=== PATIENT | female | born 1980 | race Caucasian/White ===

== ENCOUNTER 2016-08-30 11:20 | Outpatient (RCR) | payer OTHER ==
--- OUTSIDE RECORDS SUMMARY | 2016-07-05 09:10 | XMS REPORT | Continuity of Care Document ---
Author Author [facility] Organization [facility] Address Unknown Phone Unavailable Care Team Providers Care Undercover Agent Name Role Phone Carol Morillo PCP [phone] Source Comments Some departments are not documenting in the electronic medical record. If you do not see the information that you expected, contact Release of Information in the Health Information Management department at [phone] for further assistance in locating additional records.[facility] Active Allergies and Adverse Reactions No Known Allergies Current Medications Prescription Sig. Disp. Refills Start End Date Status Date pantoprazole DR Take 40 mg by mouth Active (PROTONIX) 40 mg tablet daily. zolpidem (AMBIEN) 10 mg Take 10 mg by mouth at Active tablet bedtime as needed for Sleep. medroxyPROGESTERone Inject 150 mg to area(s) Active (DEPO-PROVERA) 150 mg/mL as directed every 90 injection days. ALPRAZolam (XANAX) 1 mg Take 1 mg by mouth every Active tablet 6 hours as needed for Anxiety. diphenhydrAMINE Take 25-50 mg by mouth Active (BENADRYL) 25 mg capsule every 6 hours as needed. folic acid (FOLVITE) 1 mg Take 1 Tab by mouth 90 Tab 3 02/05/20 Active tablet daily. 16 senna/docusate Take 1-2 Tabs by mouth 0 02/05/20 Active (SENOKOT-S) 8.6/50 mg twice daily as needed 16 tablet (constipation). cyanocobalamin(+) Take 2,500 mcg by mouth Active (VITAMIN B-12) 500 mcg daily. tablet ferrous sulfate (FEOSOL, Take 325 mg by mouth Active FEROSUL) 325 mg (65 mg daily. Take on an empty iron) tablet stomach at least 1 hour before or 2 hours after food. cholecalciferol (vitamin Take 1 Tab by mouth every Active D3) 50,000 unit tab 7 days. On Sunday docusate (COLACE) 100 mg Take 100-200 mg by mouth Active capsule daily as needed for Constipation. calcium carbonate-vitamin Take 1 Tab by mouth Active D3 600 mg(1,500mg) -800 daily. unit tab multivit with min-folic Chew 1 Gummy by mouth Active acid 200 mcg chewable daily. Biotin 1 mg tab Take 1 Tab by mouth Active daily. thiamine (VITAMIN B-1) Take 1 Tab by mouth 90 Tab 3 06/28/20 Active 100 mg tablet daily. This medication 16 may be purchased from over the counter from your preferred pharmacy ondansetron (ZOFRAN ODT) Take 4 mg by mouth every 06/22/20 Discontin 4 mg rapid dissolve 4 hours as needed for 16 ued tablet Nausea. granisetron(+) (KYTRIL) 1 Take 1 mg by mouth every 06/22/20 Discontin mg tablet 12 hours as needed for 16 ued Nausea. scopolamine Apply 1 Patch to top of 06/22/20 Discontin (TRANSDERM-SCOP) 1.5 mg skin as directed every 72 16 ued patch hours. ergocalciferol (VITAMIN Take 1 Cap by mouth every 4 Cap 1 02/05/20 06/22/20 Discontin D-2) 50,000 unit capsule 7 days. 16 16 ued polyethylene glycol 3350 Take 1 Packet by mouth 12 Each 02/05/20 Discontin (MIRALAX) 17 g packet twice daily as needed 16 16 ued (constipation). bisacodyl (DULCOLAX Insert or Apply 1 0 02/05/20 06/22/20 Discontin (BISACODYL)) 10 mg rectal Suppository to rectal 16 16 ued suppository area as directed as Needed (constipation). fentaNYL (DURAGESIC) 50 Apply 1 Patch to top of 06/22/20 Discontin mcg/hr patch skin as directed every 72 16 ued hours Active Problems Problem Noted Date Neuropathy (HCC) 06/28/2016 Postdural puncture headache 06/27/2016 Gait instability 06/22/2016 Lower extremity numbness 06/22/2016 Gastric hourglass stricture or stenosis 01/31/2016 Obesity (BMI 30-39.9) 01/31/2016 Gastric band slippage 01/30/2016 S/P gastric surgery 01/30/2016 Status post bariatric surgery 01/30/2016 Nausea and vomiting 01/30/2016 Most Recent Encounters Date Type Specialty Providers Description 06/30/2016 Telephone Neurology Reagan Wilkerson MD Appointment - reminder 07.06.16 06/28/2016 [facility] Radiology Brian Ortiz MD Canceled (Scheduled from Encounter Edmund Doan MD Wait List) 06/27/2016 Procedure visit Anesthesia Pain Regan Stanton MD Postdural puncture headache (Primary Dx) 06/23/2016 Screening Form 06/22/2016 [facility] Radiology Devorah Douglas, Encounter 06/22/2016 [facility] Devorah Douglas, Encounter Zane Tellez RN Torline, Mayur Browning MD 06/22/2016 [facility] Den Rodas DO Gait instability - Encounter Devorah Douglas, 06/28/2016 Brian Wong MD Nashatizadeh, Muhammad M, MD 06/22/2016 Screening Form 06/21/2016 Telephone Neurology Reagan Wilkerson MD Worsening Symptoms 06/09/2016 Telephone Neurology Mando Wilkinson MD Appointment Request Social History Tobacco Use Types Packs/Day Years Used Date Never Smoker Alcohol Use Drinks/Week oz/Week Comments No 0 Standard 0.0 drinks or equivalent Last Filed Vital Signs Vital Sign Reading Time Taken Blood Pressure 127/74 06/28/2016 4:46 AM [employer] Pulse 43 06/28/2016 4:46 AM [employer] Temperature 36.5 C (97.7 F) 06/28/2016 4:46 AM [employer] Respiratory Rate - - Height 1.727 m (5' 8") 06/27/2016 12:36 PM [employer] Weight 89.631 kg (197 lb 9.6 oz) 06/28/2016 5:59 AM [employer] Body Mass Index 30.05 06/28/2016 5:59 AM [employer] Oxygen Saturation 94% 06/28/2016 4:46 AM [employer] Plan of Care Date Type Specialty Providers Description 07/06/2016 Appointment Neurology Reagan Wilkerson MD [address] [place] [address] [phone] (Fax) 07/06/2016 Appointment Neurology Reagan Wilkerson MD [address] [place] [address] [phone] (Fax) Health Maintenance Due Date Last Done Comments Physical (Comprehensive) 1986 Exam Pertussis Vaccine 1990 Tetanus Vaccine 1996 Cervical Cancer Screening 2000 Influenza Vaccine 03/09/2016 Procedures from Last 3 Months Procedure Name Priority Date/Time Associated Diagnosis Comments TELEMETRY STRIPS-SCAN 07/01/2016 Results for this 7:35 AM [employer] procedure are in the results section. CONSULT IV THERAPY TEAM Routine 06/25/2016 3:57 PM [employer] Results from Last 3 Months TELEMETRY STRIPS-SCAN (07/01/2016 7:35 AM) Narrative Ordered by an unspecified provider. CREATINE KINASE-CPK (06/28/2016 3:15 PM) Component Value Range Creatine Kinase 23 21-215 U/L Specimen Blood IMMUNOFIXATION, SERUM (IFES) (06/28/2016 3:15 PM) Component Value Range Immuno Fix-Serum NO PARAPROTEIN SEEN Pathologist Signature INTERPRETED BY ALBERTO HAGEN By the PATH SIGNATURE ABOVE, I attest that I have personally formulated the final interpretation expressed in this report and that the above diagnosis is based upon my examination of the slides and/or other material indicated in this report. Specimen Blood TOTAL PROTEIN SEP (06/28/2016 3:15 PM) Component Value Range Total Protein 5.9 (L) 6.0-8.0 g/dL Specimen Blood ELECTROPHORESIS-SERUM PROTEIN (06/28/2016 3:15 PM) Component Value Range Total Protein-SEP 5.9 (L) 6.0-8.0 G/DL Albumin % 60.2 48-68 % Alpha 1 % 4.3 2-6 % Alpha 2 % 14.6 5-15 % Beta %,Serum 9.2 9-17 % Gamma % 11.7 9-21 % Interpretation - SEP NORMAL ELECTROPHORETIC PATTERN Pathologist Signature INTERPRETED BY ALBERTO HAGEN By the PATH SIGNATURE ABOVE, I attest that I have personally formulated the final interpretation expressed in this report and that the above diagnosis is based upon my examination of the slides and/or other material indicated in this report. Specimen Blood ANTI-SCL 70 ANTIBODY (06/28/2016 3:15 PM) Component Value Range SCL70 Ab <0.2 Reference range: <1.0 (Negative) Unit: U [facility] Specimen Blood ANTI-CENTROMERE ANTIBODY (06/28/2016 3:15 PM) Component Value Range Centromere Antibody <0.2 Reference range: <1.0 (Negative) Unit: U [facility] Specimen Blood C REACTIVE PROTEIN (CRP) (06/28/2016 3:15 PM) Component Value Range C-Reactive Protein 0.06 <1.0 MG/DL Specimen Blood C4 COMPLEMENT 4 (06/28/2016 3:15 PM) Component Value Range Complemnt C4 21.0 10-49 MG/DL Specimen Blood C3 COMPLEMENT 3 (06/28/2016 3:15 PM) Component Value Range Complemnt C3 105.0 88-200 MG/DL Specimen Blood ANTI-DNA DOUBLE STRAND (06/28/2016 3:15 PM) Component Value Range DNA Double Strand AB <10 <10 TITER Specimen Blood BASIC METABOLIC PANEL (06/28/2016 4:45 AM)Only the most recent of 2 results within the time period is included. Component Value Range Sodium 136 (L) 137-147 MMOL/L Potassium 3.6 3.5-5.1 MMOL/L Chloride 106 98-110 MMOL/L CO2 24 21-30 MMOL/L Anion Gap 6 3-12 Glucose 130 (H) 70-100 MG/DL Blood Urea Nitrogen 15 7-25 MG/DL Creatinine 0.59 0.4-1.00 MG/DL Calcium 8.9 8.5-10.6 MG/DL eGFR Non >60Comment: >60 mL/min The eGFR is not validated for use in drug dosing adjustments. Continue to use estimated creatinine clearance per dosing reference text. Please contact the Clinical Pharmacist for questions. eGFR >60Comment: >60 mL/min The eGFR is not validated for use in drug dosing adjustments. Continue to use estimated creatinine clearance per dosing reference text. Please contact the Clinical Pharmacist for questions. Specimen Blood CBC (06/28/2016 4:45 AM)Only the most recent of 2 results within the time period is included. Component Value Range White Blood Cells 8.7 4.5-11.0 K/UL RBC 4.08 4.0-5.0 M/UL Hemoglobin 11.9 (L) 12.0-15.0 GM/DL Hematocrit 35.9 (L) 36-45 % MCV 88.2 80-100 FL MCH 29.2 26-34 PG MCHC 33.1 32.0-36.0 G/DL RDW 14.4 11-15 % Platelet Count 218 150-400 K/UL MPV 10.1 7-11 FL Specimen Blood FLUORO GUIDANCE FOR SPINE INJ RAD (06/27/2016 1:30 PM) Narrative This order has been auto finalized and does not contain a result. ANTI-NUCLEAR AB(SOLIS)-QUANT (06/26/2016 8:40 AM) Component Value Range SOLIS Titer/Pattern 640 (H)Comment: <80 HOMOGENEOUS SPECKLED FOLATE, SERUM (06/26/2016 8:40 AM) Component Value Range Serum Folate >24.0Comment: NOTE NEW REFERENCE RANGES >3.9 NG/ML Specimen Blood RHEUMATOID FACTOR (RF) (06/26/2016 8:40 AM) Component Value Range Rheum Factor Screen <20 <24 IU/mL Specimen Blood ANTI-NUCLEAR ANTIBODY(SOLIS) (06/26/2016 8:40 AM) Component Value Range SOLIS Screen SEE TITER <80 TITER Specimen Blood SED RATE (06/26/2016 8:40 AM) Component Value Range Sed Rate -ESR 10 0-20 MM/HR Specimen Blood PHOSPHORUS (06/26/2016 4:49 AM)Only the most recent of 3 results within the time period is included. Component Value Range Phosphorus 3.4 2.0-4.0 MG/DL Specimen Blood MAGNESIUM (06/26/2016 4:49 AM)Only the most recent of 3 results within the time period is included. Component Value Range Magnesium 2.5 1.6-2.6 mg/dL Specimen Blood COMPREHENSIVE METABOLIC PANEL (06/26/2016 4:49 AM)Only the most recent of 4 results within the time period is included. Component Value Range Sodium 143 137-147 MMOL/L Potassium 3.9 3.5-5.1 MMOL/L Chloride 113 (H) 98-110 MMOL/L Glucose 154 (H) 70-100 MG/DL Blood Urea Nitrogen 15 7-25 MG/DL Creatinine 0.65 0.4-1.00 MG/DL Calcium 9.1 8.5-10.6 MG/DL Total Protein 5.8 (L) 6.0-8.0 G/DL Total Bilirubin 0.5 0.3-1.2 MG/DL Albumin 3.4 (L) 3.5-5.0 G/DL Alk Phosphatase 38 25-110 U/L AST (SGOT) 13 7-40 U/L CO2 22 21-30 MMOL/L ALT (SGPT) 18 7-56 U/L Anion Gap 8 3-12 eGFR Non >60Comment: >60 mL/min The eGFR is not validated for use in drug dosing adjustments. Continue to use estimated creatinine clearance per dosing reference text. Please contact the Clinical Pharmacist for questions. eGFR >60Comment: >60 mL/min The eGFR is not validated for use in drug dosing adjustments. Continue to use estimated creatinine clearance per dosing reference text. Please contact the Clinical Pharmacist for questions. Specimen Blood CBC AND DIFF (06/26/2016 4:49 AM)Only the most recent of 4 results within the time period is included. Component Value Range White Blood Cells 13.3 (H) 4.5-11.0 K/UL RBC 4.00 4.0-5.0 M/UL Hemoglobin 11.8 (L) 12.0-15.0 GM/DL Hematocrit 35.4 (L) 36-45 % MCV 88.4 80-100 FL MCH 29.4 26-34 PG MCHC 33.3 32.0-36.0 G/DL RDW 14.8 11-15 % Platelet Count 258 150-400 K/UL MPV 9.9 7-11 FL Neutrophils 92 (H) 41-77 % Lymphocytes 7 (L) 24-44 % Monocytes 1 (L) 4-12 % Eosinophils 0 0-5 % Basophils 0 0-2 % Absolute Neutrophil Count 12.20 (H) 1.8-7.0 K/UL Absolute Lymph Count 0.90 (L) 1.0-4.8 K/UL Absolute Monocyte Count 0.10 0-0.80 K/UL Absolute Eosinophil Count 0.00 0-0.45 K/UL Absolute Basophil Count 0.00 0-0.20 K/UL Specimen Blood MRI T-SPINE WO/W CONTRAST (06/24/2016 9:17 AM) Impressions 1. 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 If clinically indicated, CT of the thoracic spine would be beneficial for confirmation. 2. Otherwise unremarkable MRI of the thoracic spine. By my electronic signature, I attest that I have personally reviewed the images for this examination and formulated the interpretations and opinions expressed in this report Finalized by MARIELENA GRIMALDO M.D. on 06/24/2016 1:00 PM. Dictated by Stephanie Dsouza M.D. on 06/24/2016 10:33 AM. Narrative EXAM: MRI THORACIC SPINE WITH AND WITHOUT CONTRAST HISTORY: Lower extremity weakness and numbness Technique: Multiple sagittal and axial MR sequences were obtained of the thoracic spine with and without gadolinium contrast. Comparison: None FINDINGS: Dr. MARIELENA GRIMALDO M.D. has personally reviewed these images and formulated the interpretations and opinions expressed in this report. There is normal thoracic alignment. The vertebral body heights are maintained. There is a lesion within the right aspect of the T10 vertebral body, which abuts the posterior cortex without cortical disruption or bulging. Lesion demonstrates stippled internal signal characteristics with both T1 and T2 hyperintensity, as well as stippled areas of internal fat saturation. No significant surrounding bone marrow edema. Similar-appearing lesion is seen within the right T11 vertebral body and pedicle, although, with relative lack of intrinsic T1 signal hyperintensity. The thoracic cord is normal in size and signal. There is no significant central or neural foraminal narrowing. The paraspinous soft tissues are unremarkable. Procedure Note Interface, Radiant Results - Sat Jun 24, 2016 1:03 PM [employer] EXAM: MRI THORACIC SPINE WITH AND WITHOUT CONTRAST HISTORY: Lower extremity weakness and numbness Technique: Multiple sagittal and axial MR sequences were obtained of the thoracic spine with and without gadolinium contrast. Comparison: None FINDINGS: Dr. MARIELENA GRIMALDO M.D. has personally reviewed these images and formulated the interpretations and opinions expressed in this report. There is normal thoracic alignment. The vertebral body heights are maintained. There is a lesion within the right aspect of the T10 vertebral body, which abuts the posterior cortex without cortical disruption or bulging. Lesion demonstrates stippled internal signal characteristics with both T1 and T2 hyperintensity, as well as stippled areas of internal fat saturation. No significant surrounding bone marrow edema. Similar-appearing lesion is seen within the right T11 vertebral body and pedicle, although, with relative lack of intrinsic T1 signal hyperintensity. The thoracic cord is normal in size and signal. There is no significant central or neural foraminal narrowing. The paraspinous soft tissues are unremarkable. IMPRESSION 1. 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 If clinically indicated, CT of the thoracic spine would be beneficial for confirmation. 2. Otherwise unremarkable MRI of the thoracic spine. By my electronic signature, I attest that I have personally reviewed the images for this examination and formulated the interpretations and opinions expressed in this report Finalized by MARIELENA GRIMALDO M.D. on 06/24/2016 1:00 PM. Dictated by Stepahnie Dsouza M.D. on 06/24/2016 10:33 AM. VITAMIN E (06/24/2016 5:22 AM) Component Value Range Vitamin E 10.0Comment: Reference range: 5.5 to 17.0 Unit: mg/L ADDITIONAL INFORMATION This test was developed and its performance characteristics determined by [facility] in a manner consistent with CLIA requirements. This test has not been cleared or approved by the U.S. Food and Drug Administration. [facility], [address] [place] [address] Specimen Blood 25-OH VITAMIN D (D2 + D3) (06/24/2016 5:22 AM) Component Value Range Vitamin D(25-OH)Total 100.0 (H) 30-80 NG/ML Specimen Blood ANGIOTENSIN CONV ENZYME (AB) (06/23/2016 3:38 PM) Component Value Range Angiotensin Convert 21Comment: Enzyme Reference range: 8 to 53 Unit: U/L [facility] COP[place] (06/23/2016 3:38 PM) Component Value Range Copper, Serum 1.18Comment: Reference range: 0.75 to 1.45 Unit: mcg/mL ADDITIONAL INFORMATION This test was developed and its performance characteristics determined by [facility] in a manner consistent with CLIA requirements. This test has not been cleared or approved by the U.S. Food and Drug Administration. [facility], [address] [place] [address] Specimen Blood VITAMIN B12 (06/23/2016 3:38 PM) Component Value Range Vitamin B12 1871 (H) 180-914 PG/ML Specimen Blood VITAMIN B1 (THIAMINE) WHOLE BLD (06/23/2016 3:38 PM) Component Value Range Vitamin B1,Whole Blood 92Comment: Reference range: 70 to 180 Unit: nmol/L ADDITIONAL INFORMATION This test was developed and its performance characteristics determined by [facility] in a manner consistent with CLIA requirements. This test has not been cleared or approved by the U.S. Food and Drug Administration. [facility], [address] [place] [address] Specimen Blood MRI HEAD WO/W CONTRAST (06/22/2016 8:43 PM) Impressions 1. 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 Approved by Kina Kinney M.D. on 06/23/2016 10:25 AM By my electronic signature, I attest that I have personally reviewed the images for this examination and formulated the interpretations and opinions expressed in this report Finalized by Cuco Parish M.D. on 06/23/2016 2:03 PM. Dictated by Kina Kinney M.D. on 06/23/2016 8:49 AM. Narrative EXAM: MRI BRAIN HISTORY: 36-year-old female, Non-fatigable Nystagmus TECHNIQUE: Multiplanar and multisequence MR imaging of the whole brain was performed. This was done both before and after the administration of gadolinium contrast. Additional dedicated MR sequences were obtained of the skullbase before and after the administration of gadolinium contrast. COMPARISON: MRI head January 26, 2016 FINDINGS: The skullbase marrow signal is normal.The meckel's caves, cavernous sinuses , clivus and petrous apices are normal in appearance. The suprasellar, prepontine and cerebellopontine and cerebellomedullary cisterns are patent. No signal abnormality or mass lesion is identified along the expected course of the visualized cranial nerves. The ventricles and subarachnoid spaces are normal in size and configuration. A single punctate FLAIR hyperintense focus is noted within the right nichole radiata. There is mild tonsillar ectopia without morphologic features of Chiari malformation. There is no focal mass or mass effect. There is no area of abnormal contrast enhancement. The vascular flow-voids are unremarkable. Diffusion weighted imaging is not indicative of infarct. Procedure Note Interface, Radiant Results - Fri Jun 23, 2016 2:06 PM [employer] EXAM: MRI BRAIN HISTORY: 36-year-old female, Non-fatigable Nystagmus TECHNIQUE: Multiplanar and multisequence MR imaging of the whole brain was performed. This was done both before and after the administration of gadolinium contrast. Additional dedicated MR sequences were obtained of the skullbase before and after the administration of gadolinium contrast. COMPARISON: MRI head January 26, 2016 FINDINGS: The skullbase marrow signal is normal. The meckel's caves, cavernous sinuses, clivus and petrous apices are normal in appearance. The suprasellar, prepontine and cerebellopontine and cerebellomedullary cisterns are patent. No signal abnormality or mass lesion is identified along the expected course of the visualized cranial nerves. The ventricles and subarachnoid spaces are normal in size and configuration. A single punctate FLAIR hyperintense focus is noted within the right nichole radiata. There is mild tonsillar ectopia without morphologic features of Chiari malformation. There is no focal mass or mass effect. There is no area of abnormal contrast enhancement. The vascular flow-voids are unremarkable. Diffusion weighted imaging is not indicative of infarct. IMPRESSION 1. 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 Approved by Kina Kinney M.D. on 06/23/2016 10:25 AM By my electronic signature, I attest that I have personally reviewed the images for this examination and formulated the interpretations and opinions expressed in this report Finalized by Cuco Parish M.D. on 06/23/2016 2:03 PM. Dictated by Kina Kinney M.D. on 06/23/2016 8:49 AM. MRI C-SPINE WO/W CONTRAST (06/22/2016 8:43 PM) Impressions Unremarkable MRI of the C-spine. Approved by Kina Kinney M.D. on 06/23/2016 10:26 AM By my electronic signature, I attest that I have personally reviewed the images for this examination and formulated the interpretations and opinions expressed in this report Finalized by Cuco Parish M.D. on 06/23/2016 2:03 PM. Dictated by Kina Kinney M.D. on 06/23/2016 8:47 AM. Narrative EXAM: MRI C-SPINE HISTORY: 36-year-old female, lower extremity weakness, numbness Technique: Multiple sagittal and axial MR sequences were obtained of the cervical spine with and without gadolinium contrast. Comparison: None FINDINGS: There is mild tonsillar ectopia without morphologic features anteriorly mild formation. There is normal cervical alignment. The vertebral body heights are maintained. There is normal marrow signal.The cervical cord is normal in size and signal. There is no significant central or neural foraminal narrowing. No abnormal enhancing lesion is identified. The paraspinous soft tissues are unremarkable. Procedure Note Interface, Radiant Results - SunJun 23, 2016 2:06 PM [employer] EXAM: MRI C-SPINE HISTORY: 36-year-old female, lower extremity weakness, numbness Technique: Multiple sagittal and axial MR sequences were obtained of the cervical spine with and without gadolinium contrast. Comparison: None FINDINGS: There is mild tonsillar ectopia without morphologic features anteriorly mild formation. There is normal cervical alignment. The vertebral body heights are maintained. There is normal marrow signal. The cervical cord is normal in size and signal. There is no significant central or neural foraminal narrowing. No abnormal enhancing lesion is identified. The paraspinous soft tissues are unremarkable. IMPRESSION Unremarkable MRI of the C-spine. Approved by Kina Kinney M.D. on 06/23/2016 10:26 AM By my electronic signature, I attest that I have personally reviewed the images for this examination and formulated the interpretations and opinions expressed in this report Finalized by Cuco Parish M.D. on 06/23/2016 2:03 PM. Dictated by Kina Kinney M.D. on 06/23/2016 8:47 AM. OLIGOCOLONAL BANDS-CSF (06/22/2016 4:45 PM) Component Value Range Serum Bands 0Comment: Unit: bands [facility] CSF Bands 0Comment: Unit: bands [facility] CSF Oligo Bands 0Comment: Interpretation Reference range: <4 Unit: bands The oligoclonal band assay detected 3 or less IgG bands in the CSF, which are not present in the serum. This is a Negative result. [facility] IGG INDEX (CSF & SERUM) (06/22/2016 4:45 PM) Component Value Range IgG Serum 858 MG/DL Albumin, Serum IGG 4020 MG/DL IgG CSF 4.2 MG/DL Albumin IGG, CSF 30.4 MG/DL IgG Index 0.65 (H) 0.3-0.6 IgG Synthesis Rate 3.6Comment: NORMAL RANGE NEG 9.9 TO 3.3 Specimen Cerebrospinal fluid - Cerebrospinal Fluid CELL COUNT W/DIFF-CSF (06/22/2016 4:45 PM) Component Value Range Cell Count Tube,CSF TUBE 4 White Blood Cells,CSF 1 <5 /UL Red Blood Cells,CSF 8 /UL Lymphocytes, CSF 89 % Monocyte/Hisotocyte, CSF 11 % Clarity,CSF CLEAR Path Interpretation, CSF NO DIAGNOSTIC ABNORMALITIES Pathologist Signature INTERPRETED BY ALBERTO MYERS M.D. By the PATH SIGNATURE ABOVE, I attest that I have personally formulated the final interpretation expressed in this report and that the above diagnosis is based upon my examination of the slides and/or other material indicated in this report. Specimen Cerebrospinal fluid - Cerebrospinal Fluid TOTAL PROTEIN-CSF (06/22/2016 4:45 PM) Component Value Range Total Protein,CSF 53 (H) 15-45 MG/DL Specimen Cerebrospinal fluid - Cerebrospinal Fluid GLUCOSE-CSF (06/22/2016 4:45 PM) Component Value Range Glucose,CSF 51 40-75 MG/DL Xanthrochromia,CSF NONE Specimen Cerebrospinal fluid - Cerebrospinal Fluid GRAM STAIN (06/22/2016 4:45 PM) Component Value Range Battery Name GRAM STAIN Specimen Description CSF Special Requests NONE Gram Stain RARE NEUTROPHILS FEW RBC'S NO ORGANISMS SEEN Report Status FINAL 06/22/2016 Specimen Cerebrospinal Fluid CULTURE-CSF W/SENSITIVITY (06/22/2016 4:45 PM) Component Value Range Battery Name CSF CULTURE Specimen Description CSF Special Requests NONE Direct Gram Stain RARE NEUTROPHILS FEW RBC'S NO ORGANISMS SEEN Culture NO GROWTH 3 DAYS Report Status FINAL 06/25/2016 Specimen Cerebrospinal fluid - Cerebrospinal Fluid IR LUMBAR PUNCTURE (06/22/2016 4:39 PM) Impressions 1. Fluoroscopic guided lumbar puncture, as described. 2. The opening cerebral spinal fluid pressure was 12 cm of water. 3. 12 ml of CSF collected. Approved by Saw Gama M.D. on 06/22/2016 6:26 PM Mayur Sauceda M.D, the attending radiologist, was present for the critical and silva portions of the procedure with a midlevel, resident, and/or fellow participating.Overlapping portions were non silva and I was immediately available.I interpret the critical and silva portion of this procedure to have been needle access. @TT By my electronic signature, I attest that I have personally reviewed the images for this examination and formulated the interpretations and opinions expressed in this report Finalized by Mayur Valencia M.D. on 06/23/2016 7:52 AM. Dictated by Saw Gama M.D. on 06/22/2016 6:25 PM. Narrative Fluoroscopic guided lumbar puncture with pressure measurements Clinical History: Possible GBS/CIDP Supervisor Paint Roller Covers: Timi Hall M.D. Total fluoroscopy dose: 4 mGy. Medications: mg Versed IV,mcg fentanyl IV Technique and Findings: After the procedure was explained, including the potential risk, benefits, and alternatives, both informed written/verbal consent and a brief history were obtained. The patient was brought to the fluoroscopy suite and placed on the examination table in a prone position. The lower back was then prepped and draped in the usual standard sterile fashion. 2% lidocaine was used for local anesthesia. Utilizing fluoroscopy guidance, a 20 gauge spinal needle was advanced into the intrathecal sac at the level of L3-L4 Position was confirmed by return of cerebral spinal fluid, which was clear. The patient was then placed in the left lateral decubitus position and opening cerebrospinal fluid pressures were obtained, which measured 12cm of water. Next, approximately 12ml of cerebral spinal fluid was collected and sent to the laboratory for requested laboratory studies. The needle was then removed and adequate hemostasis was achieved. The patient tolerated procedure without complications and left the department in stable condition after appropriate monitoring. Procedure Note Interface, Radiant Results - SunJun 23, 2016 7:55 AM PARENTING SKILLS INSTRUCTOR Fluoroscopic guided lumbar puncture with pressure measurements Clinical History: Possible GBS/CIDP Supervisor Paint Roller Covers: Saw Gama M.D. and Mayur Valencia M.D. Total fluoroscopy dose: 4 mGy. Medications: mg Versed IV, mcg fentanyl IV Technique and Findings: After the procedure was explained, including the potential risk, benefits, and alternatives, both informed written/verbal consent and a brief history were obtained. The patient was brought to the fluoroscopy suite and placed on the examination table in a prone position. The lower back was then prepped and draped in the usual standard sterile fashion. 2% lidocaine was used for local anesthesia. Utilizing fluoroscopy guidance, a 20 gauge spinal needle was advanced into the intrathecal sac at the level of L3-L4 Position was confirmed by return of cerebral spinal fluid, which was clear. The patient was then placed in the left lateral decubitus position and opening cerebrospinal fluid pressures were obtained, which measured 12cm of water. Next, approximately 12ml of cerebral spinal fluid was collected and sent to the laboratory for requested laboratory studies. The needle was then removed and adequate hemostasis was achieved. The patient tolerated procedure without complications and left the department in stable condition after appropriate monitoring. IMPRESSION 1. Fluoroscopic guided lumbar puncture, as described. 2. The opening cerebral spinal fluid pressure was 12 cm of water. 3. 12 ml of CSF collected. Approved by Saw Gama M.D. on 06/22/2016 6:26 PM IMayur M.D, the attending radiologist, was present for the critical and silva portions of the procedure with a midlevel, resident, and/or fellow participating. Overlapping portions were non silva and I was immediately available. I interpret the critical and silva portion of this procedure to have been needle access. @TT By my electronic signature, I attest that I have personally reviewed the images for this examination and formulated the interpretations and opinions expressed in this report Finalized by Mayur Valencia M.D. on 06/23/2016 7:52 AM. Dictated by Saw Gama M.D. on 06/22/2016 6:25 PM. URINALYSIS, MICROSCOPIC (06/22/2016 12:09 PM) Component Value Range WBCs,UA 0-2 0-2 /HPF RBCs,UA NONE 0-3 /HPF MucousUA 2+ Bacteria,UA FEW (A) NEG-NEG Squamous Epithelial Cells 0-2 0-5 Hyaline Cast 0-2 Specimen Urine URINALYSIS DIPSTICK (06/22/2016 12:09 PM) Component Value Range Color,UA YELLOW Turbidity,UA CLEAR CLEAR-CLEAR Specific [place]-Urine 1.012 1.003-1.035 pH,UA 7.0 5.0-8.0 Protein,UA NEG NEG-NEG Glucose,UA NEG NEG-NEG Ketones,UA NEG NEG-NEG Bilirubin,UA NEG NEG-NEG Blood,UA NEG NEG-NEG Urobilinogen,UA NORMAL NORM-NORMAL Nitrite,UA NEG NEG-NEG Leukocytes,UA NEG NEG-NEG Urine Ascorbic Acid, UA NEG NEG-NEG Specimen Urine
[~2016-08-30 11:20] MED LIST: ALPR1TAB7 PO; CALC-901 PO; CHOL500049 PO; CTRZ10T; CYAN25003 SL; D50KC PO; DIPH25TA29 PO; DIPH50CA33; DIVA-21 PO; DOCU-143 PO; FERR-84 PO; FEXO1TAB49; FOLI1TAB24 PO; IBP600T1; LEVO5TAB12 PO; MEDR150D6 INJ; MEDROXYPROGESTERONE; METO-270 PO; MNTL10T; NFBIOT1000 PO; ONDA4TAB10 PO; ONDA4TAB11 PO; ONDA4TAB8 PO; ONDN4T PO; OXYC-471 PO; PANT40TA2 PO; PANT40TA3 PO; PEDI1TAB30 PO; PRD10T; SCOP1PAT TD; SENN-36 PO; ZOLP10TA PO; ZOLP10TA5 PO; [UNRECOGNIZED DRUG - OTHER] PO
== END 2016-09-20 14:53 | disposition home or self-care (01) ==
PROVIDERS: ATTEND Nurse Practitioner Family
DX: R53.1 Weakness (principal)

== ENCOUNTER → 2017-04-23 | Outpatient (CLI) | payer OTHER ==
[~2017-04-23] MED LIST changes: -D50KC PO; +ERGO50006 PO
[2017-04-23 12:44] LABS: BASOPHILS % (AUTO) 0 % (0-10); EOSINOPHILS # (AUTO) 0.1 10^3/uL (0.0-0.3); EOSINOPHILS % (AUTO) 1 % (0-10); LYMPHOCYTES # (AUTO) 1.7 X 10^3 (1.0-4.0); LYMPHOCYTES % (AUTO) 28 % (12-44); MEAN CORPUSCULAR HEMOGLOBIN 30 PG (25-34); MEAN CORPUSCULAR HGB CONC 34 G/DL (32-36); MEAN CORPUSCULAR VOLUME 88 FL (80-99); MEAN PLATELET VOLUME 10.8 FL (7.4-10.4); MONOCYTES # (AUTO) 0.4 X 10^3 (0.0-1.0); MONOCYTES % (AUTO) 6 % (0-12); NEUTROPHILS # (AUTO) 3.9 X 10^3 (1.8-7.8); NEUTROPHILS % (AUTO) 65 % (42-75); PLATELET COUNT 242 10^3/uL (130-400); RED BLOOD COUNT 4.87 10^6/uL (4.35-5.85); RED CELL DISTRIBUTION WIDTH 12.5 % (10.0-14.5); WHITE BLOOD COUNT 6.1 10^3/uL (4.3-11.0)
[2017-04-23 13:10] LABS: ALANINE AMINOTRANSFERASE 19 U/L (0-55); ALBUMIN 4.4 GM/DL (3.2-4.5); ANION GAP 8 MMOL/L (5-14); ASPARTATE AMINO TRANSFERASE 19 U/L (5-34); BILIRUBIN,TOTAL 0.8 MG/DL (0.1-1.0); BLOOD UREA NITROGEN 12 MG/DL (7-18); BUN/CREATININE RATIO 13; CALCIUM 9.4 MG/DL (8.5-10.1); CARBON DIOXIDE 24 MMOL/L (21-32); CHLORIDE 109 MMOL/L (98-107); GFR ESTIMATED > 60; GLUCOSE 80 MG/DL (70-105); POTASSIUM 3.6 MMOL/L (3.6-5.0); SODIUM 141 MMOL/L (135-145); TOTAL PROTEIN 7.1 GM/DL (6.4-8.2)
[2017-04-24 07:26] LABS: FOLIC ACID 14.4 ng/mL (1.5-24.0)
== END ==
LOC: LAB 12:00
PROVIDERS: ATTEND Obstetrics & Gynecology
DX: K90.9 Intestinal malabsorption, unspecified (principal); R79.0 Abnormal level of blood mineral; E55.9 Vitamin D deficiency, unspecified; D51.9 Vitamin B12 deficiency anemia, unspecified; D50.9 Iron deficiency anemia, unspecified; Z98.84 Bariatric surgery status; Z80.41 Family history of malignant neoplasm of ovary
CPT/HCPCS: 36415; 80053; 82306; 82525; 82607; 82728; 82746; 83540; 84425; 85025; 86304

== ENCOUNTER → 2017-04-23 | Outpatient (CLI) | payer OTHER ==
[2017-04-23 13:10] LABS: CHOLESTEROL 190 MG/DL (< 200); DIRECT LDL 126 MG/DL (1-129); TRIGLYCERIDES 105 MG/DL (<150); VLDL CHOLESTEROL 21 MG/DL (5-40)
== END ==
LOC: LAB 12:08
PROVIDERS: ATTEND Physician Assistant
DX: E78.2 Mixed hyperlipidemia (principal)
CPT/HCPCS: 36415; 80061

== ENCOUNTER 2018-04-17 08:23 | Outpatient (CLI) | payer OTHER ==
[~2018-04-17] VITALS: Ht 172.7 cm; Wt 88.2 kg
[~2018-04-17 08:23] MED LIST changes: -METO-270 PO; +METO-387 PO; -SCOP1PAT TD; +SCOP1PAT11 TD
[2018-04-17] MEDS ORDERED: CHRO1TAB7 PO (08:32)
[2018-04-17] MEDS ORDERED: CETI10TA17 PO (08:32)
[2018-04-17] MEDS ORDERED: RANI-515 PO (08:32)
[2018-04-17] MEDS ORDERED: THIA250T8 PO (08:32)
[2018-04-17 08:35] VITALS: BP 118/80
[2018-04-17 09:10] LABS: BASOPHILS % (AUTO) 0 % (0-10); EOSINOPHILS # (AUTO) 0.6 10^3/uL (0.0-0.3); EOSINOPHILS % (AUTO) 6 % (0-10); HEMATOCRIT 42 % (35-52); HEMOGLOBIN 14.3 G/DL (11.5-16.0); LYMPHOCYTES % (AUTO) 23 % (12-44); MEAN CORPUSCULAR HEMOGLOBIN 30 PG (25-34); MEAN CORPUSCULAR HGB CONC 34 G/DL (32-36); MEAN CORPUSCULAR VOLUME 89 FL (80-99); MEAN PLATELET VOLUME 11.1 FL (7.4-10.4); MONOCYTES # (AUTO) 0.6 X 10^3 (0.0-1.0); MONOCYTES % (AUTO) 6 % (0-12); NEUTROPHILS # (AUTO) 5.6 X 10^3 (1.8-7.8); NEUTROPHILS % (AUTO) 64 % (42-75); PLATELET COUNT 248 10^3/uL (130-400); RED BLOOD COUNT 4.74 10^6/uL (4.35-5.85); RED CELL DISTRIBUTION WIDTH 13.2 % (10.0-14.5); WHITE BLOOD COUNT 8.7 10^3/uL (4.3-11.0)
[2018-04-23] MEDS ORDERED: SIME80TA16 PO (16:50)
[2018-04-23] MEDS ORDERED: HYDR-34 PO (16:50)
== END 2018-04-17 10:22 | disposition home or self-care (01) ==
LOC: PREOP 08:23
PROVIDERS: ATTEND Obstetrics & Gynecology
DX: Z01.810 Encounter for preprocedural cardiovascular examination (principal); Z01.812 Encounter for preprocedural laboratory examination; Z11.2 Encounter for screening for other bacterial diseases; D25.9 Leiomyoma of uterus, unspecified; Z80.41 Family history of malignant neoplasm of ovary
CPT/HCPCS: 36415; 85025; 86850; 86900; 86901; 87081; 93005

== ENCOUNTER 2018-04-23 06:10 | Day surgery (SDC) | payer OTHER ==
[~2018-04-23] VITALS: Ht 172.7 cm; Wt 88.2 kg
[2018-04-23] VITALS (8 sets, daily range): BP systolic 104–123; BP diastolic 58–104
[~2018-04-23 06:10] MED LIST changes: +CETI10TA17 PO; +CHRO1TAB7 PO; +RANI-515 PO; +THIA250T8 PO
--- OUTSIDE RECORDS SUMMARY | 2018-04-23 06:18 | XMS REPORT ---
Author Author RAOUL RFANC Organization [facility] Address [address] [place] [address] Care Team Providers Care Foreign Collection Clerk Name Role Phone SILVEIRAFRANC Gomez Unavailable PROBLEMS Type Condition ICD9-CM Code EHC67-LO Code Onset Dates Condition Status SNOMED Code Problem Vitamin D deficiency E55.9 Active 03582865 Problem Pain in right knee M25.561 Active 71925984 Problem Pain in left knee M25.562 Active 32893188 Problem Status following gastric bypass for weight loss Z98.84 Active 360043446 Problem Esophageal stricture K22.2 Active 62068953 Problem Overweight (BMI 25.0-29.9) E66.3 Active 223736901 Problem Left foot drop M21.372 Active 536544135800373 Problem Hirsutism L68.0 Active 007412952 Problem Foot drop, right foot M21.371 Active 1687095 Problem Vitamin deficiency, unspecified E56.9 Active 50601119 Problem 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 [address] [place] [address] 01275- [address] November, General medical examination Z00.00 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 and Overweight (BMI 25.0- 29.9) E66.3 [place] [address] [place] [address] 20189- 3823 May, Vitamin deficiency, unspecified E56.9 [place] [address] [address] Jan, [place] [address] [place] [id number] [place] [address] 22431- 6406 Jan, [place] [address] [place] [id number] [place] [address] 32297- 9267 November, [place] [address] [place] [id number] [place] [address] 13450- 8523 Jul, General medical examination Z00.00 ; Yeast dermatitis B37.2 ; Left foot drop M21.372 ; Foot drop, right foot M21.371 ; Pain in right knee M25.561 ; Pain in left knee M25.562 ; Hirsutism L68.0 ; 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 ; Vitamin deficiency, unspecified E56.9 and Status following gastric bypass for weight loss Z98.84 [place] [address] [id number] [place] [address] 31343- 4599 Jun, Weakness R53.1 [place] [id number] [place] [address] 74758- 5484 May, [place] [address] [place] [id number] [place] [address] 47397- 4241 Feb, Cardiomyopathy I42.9 ; Tachycardia R00.0 ; Dizziness R42 and Obesity (BMI 30.0-34.9) E66.9 [place] [address] [place] [id number] [place] [address] 37723- 2781 Feb, [place] [id number] [place] [address] 82451- 3539 Feb, Decreased cardiac ejection fraction R93.1 ; Vitamin D deficiency E55.9 ; Sludge in gallbladder K82.8 and Weakness R53.1 [place] [id number] [place] [address] 17197- 9030 Oct, [place] [address] [address] Oct, [facility] [address] [place] [id number] [place] [address] 10344- 0959 Apr, History of urinary infection Z87.440 ; Seizure R56.[address] [facility] [address] [place] [id number] [place] [address] 85977- 0339 Apr, Seizure R56.9 [address] T[address] headache G44.209 [facility] [address] [place] [id number] [place] [address] 14019- 7873 Apr, [facility] [id number] [place] [address] 26[address]- 3021 Oct, [facility] [id number] [place] [address] 8[address]- 6194 Oct, [facility] [id number] [place] [address]- 7219 Jun, [facility] [id number] [place] [address] 04135- 8754 Jun, [facility] [id number] [place] [address]89- 0796 Jun, [facility] [id number] [place] [address] 29847- 5673 Jun, [facility] [address] [place] [id number] [place] [address] 96702- 4390 Jun, IMMUNIZATIONS No Known Immunizations SOCIAL HISTORY Never Assessed REASON FOR VISIT wellness physical for insurance-----DBennettRN, would like thyroid checked PLAN OF CARE Activity Details Follow Up 1 Year, prn Reason: VITAL SIGNS Height 70.5 in 2017-11-26 Weight 180 lbs 2017-11-26 Temperature 99.5 degrees Fahrenheit 2017-11-26 Heart Rate 90 bpm 2017-11-26 Respiratory Rate 20 2017-11-26 BMI 25.46 kg/m2 2017-11-26 Blood pressure systolic 122 mmHg 2017-11-26 Blood pressure diastolic 84 mmHg 2017-11-26 MEDICATIONS Medication Instructions Dosage Frequency Start Date End Date Duration Status Alprazolam 1 MG Orally every 6 hours PRN 1 tablet Not-Taking Depo-Provera by intramuscular route Jun, Active Pantoprazole Sodium 40 MG Orally Once a day 1 tablet 24h Not- Taking Benadryl 25 MG Orally every 6 hrs 1 capsule as needed 6h Not- Taking Tylenol Allergy Complete 2-30-500 MG Orally every 6 hrs 2 tablets as needed 6h Not-Taking RESULTS No Results PROCEDURES Procedure Date Ordered Result Body Site ASSAY OF VITAMIN E November 26, 2017 ASSAY OF VITAMIN A November 26, 2017 ASSAY THYROID STIM HORMONE November 26, 2017 ASSAY OF CERULOPLASMIN November 26, 2017 VITAMIN B-12 November 26, 2017 ASSAY OF VITAMIN B-1 November 26, 2017 ASSAY OF FERRITIN November 26, 2017 BLOOD FOLIC ACID SERUM November 26, 2017 INSTRUCTIONS MEDICATIONS ADMINISTERED No Known Medications MEDICAL (GENERAL) HISTORY Type Description Date Medical History new onset seizure 04-24-15 Medical History GB Sludge 2015 Medical History Hospitalization 06-23 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
--- OUTSIDE RECORDS SUMMARY | 2018-04-23 06:18 | XMS REPORT ---
Author Author ANTHONY PEREZ Organization [employer] Address Unknown Phone Unavailable Care Team Providers Care Braille Duplicating Machine Operator Name Role Phone ANTHONY PEREZ CP Unavailable Allergies No Known Allergies Problems Problem Type Condition Code Onset Dates Condition Status Problem Dysuria 788.1 Active Medications No Known Medications Results No Known Results Summary Purpose [employer] Submission
--- OUTSIDE RECORDS SUMMARY | 2018-04-23 06:18 | XMS REPORT ---
Author Author RAOULELISAFRANC Organization [facility] Address [address] [place] [address] Care Team Providers Care Sheet Rock Finisher Name Role Phone SILVEIRAFRANC Gomez Unavailable PROBLEMS Type Condition ICD9-CM Code KAP38-RA Code Onset Dates Condition Status SNOMED Code Problem Vitamin D deficiency E55.9 Active 21090770 Problem Pain in right knee M25.561 Active 60978865 Problem Pain in left knee M25.562 Active 69934700 Problem Status following gastric bypass for weight loss Z98.84 Active 869355226 Problem Esophageal stricture K22.2 Active 60583049 Problem Overweight (BMI 25.0-29.9) E66.3 Active 003319116 Problem Left foot drop M21.372 Active 223570575481587 Problem Hirsutism L68.0 Active 540359491 Problem Foot drop, right foot M21.371 Active 7059246 Problem Vitamin deficiency, unspecified E56.9 Active 46445618 Problem 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 Active 892828446 ALLERGIES No Information ENCOUNTERS Encounter Location Date Diagnosis [place] [address] [place] [address] 32172- [address] November, [facility] [address] [place] [address] 69900- 7167 November, General medical examination Z00.00 [facility] [address] [place] [id number] [place] [address] 17710- 1086 November, General medical examination Z00.00 ; Vitamin deficiency, unspecified E56.9 ; Status following gastric bypass for weight loss Z98.84 ; 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 and Overweight (BMI 25.0- 29.9) E66.3 [place] [address] [place] [address] 04075- 2853 May, Vitamin deficiency, unspecified E56.9 [place] [address], [place] [address] Jan, [place] [address] [place] [id number] [place] [address] 11464- 8289 Jan, [place] [address] [place] [id number] [place] [address] 16368- 7919 November, [place] [address] 64[address]- [address] Jul, General medical examination Z00.00 ; Yeast dermatitis B37.2 ; Left foot drop M21.372 ; Foot drop, right foot M21.371 ; Pain in right knee M25.561 ; Pain in left knee M25.562 ; Hirsutism L68.0 ; 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 ; Vitamin deficiency, unspecified E56.9 and Status following gastric bypass for weight loss Z98.84 [place] [address] [place] [id number] [place] [address] 13091- 9735 Jun, Weakness R53.[address] [address]- [address] May, [place] [id number] [place] [address] 11182- 8048 Feb, Cardiomyopathy I42.9 ; Tachycardia R00.0 ; Dizziness R42 and Obesity (BMI 30.0-34.9) E66.9 [place] [address] [place] [id number] [place] [address] 05336- 0675 Feb, [place] [id number] [place] [address] 76781- 2871 Feb, Decreased cardiac ejection fraction R93.1 ; Vitamin D deficiency E55.9 ; Sludge in gallbladder K82.8 and Weakness R53.1 [place] [id number] [place] [address] 46609- 0024 Oct, [address] [place] [address]- [address]112 Oct, [facility] [address] [place] [id number] [place] [address] 22899- 5828 Apr, History of urinary infection Z87.440 ; Seizure R56.9 and Hematuria R31.9 [facility] [address] [place] [id number] [place] [address] 87806- 9246 Apr, Seizure R56.9 and Tension headache G44.209 [facility] [address] [place] [id number] [place] [address] 89473- 5658 Apr, [facility] [address] [place] [id number] [place] [address] 92722- 6155 Oct, [facility] [address] [place] [id number] [place] [address] 83850- 4973 Oct, [facility] [address] [place] [id number] [place] [address] 05260- 7934 Jun, [facility] [address] [place] [id number] [place] [address] 56206- 8117 Jun, [facility] [address] [place] [id number] [place] [address] 51516- 4715 Jun, [facility] [address] [place] [address] 69198- 3968 Jun, [facility] [address] [place] [address] 51296- 1563 Jun, IMMUNIZATIONS No Known Immunizations SOCIAL HISTORY Never Assessed REASON FOR VISIT Requests return call PLAN OF CARE VITAL SIGNS MEDICATIONS Unknown Medications RESULTS No Results PROCEDURES No Known procedures INSTRUCTIONS MEDICATIONS ADMINISTERED No Known Medications MEDICAL (GENERAL) HISTORY Type Description Date Medical History new onset seizure 04-24-15 Medical History GB Sludge 2016 Medical History Hospitalization 06-23 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
--- OUTSIDE RECORDS SUMMARY | 2018-04-23 06:18 | XMS REPORT | Clinical Summary ---
Author Author [facility] Organization [facility] Address Unknown Phone Unavailable Care Team Providers Care Financial Compliance Officer Name Role Phone Rita Eagle MD Unavailable Juany Hernández MD Unavailable Carol Morillo PCP Opal Dang RN Unavailable Unavailable David Schrader MD Unavailable Mando Wilkinson MD Unavailable Source Comments Some departments are not documenting in the electronic medical record. If you do not see the information that you expected, contact Release of Information in the Health Information Management department at [phone] for further assistance in locating additional records.[facility] Allergies No Known Allergies Current Medications Prescription Sig. Disp. Refills Start End Date Status Date zolpidem (AMBIEN) 10 mg Take 10 mg by mouth at Active tablet bedtime as needed for Sleep. medroxyPROGESTERone Inject 150 mg to area(s) Active (DEPO-PROVERA) 150 mg/mL as directed every 90 injection days. ALPRAZolam (XANAX) 1 mg Take 1 mg by mouth at Active tablet bedtime as needed for Anxiety. diphenhydrAMINE Take 25-50 mg by mouth Active (BENADRYL) 25 mg capsule every 6 hours as needed. folic acid (FOLVITE) 1 mg Take 1 Tab by mouth 90 Tab 3 02/05/20 Active tablet daily. 16 cyanocobalamin(+) Take 2,500 mcg by mouth Active (VITAMIN B-12) 500 mcg daily. tablet cholecalciferol (vitamin Take 1 Tab by mouth every Active D3) 50,000 unit tab 7 days. On Sunday thiamine (VITAMIN B-1) Take 1 Tab by mouth 90 Tab 3 06/28/20 Active 100 mg tablet daily. This medication 16 may be purchased from over the counter from your preferred pharmacy Multivitamins chew Chew by mouth twice Active daily. COPPER PO Take 2 mg by mouth daily. Active vitamin A 25,000 unit cap Take 25,000 Units by Active mouth daily. 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 Gastric hourglass stricture or stenosis 01/31/2016 Obesity (BMI 30-39.9) 01/31/2016 Gastric band slippage 01/30/2016 S/P gastric surgery 01/30/2016 Status post bariatric surgery 01/30/2016 Nausea and vomiting 01/30/2016 Encounters Date Type Specialty Care Team Description 03/12/2018 Telephone Neurology Reagan Wilkerson MD General Question from Last 3 Months Family History Medical History Relation Name Comments Hypertension Father Diabetes Mother Thyroid Disease Mother Relation Name Status Comments Father Alive Mother Alive Social History Tobacco Use Types Packs/Day Years Used Date Never Smoker Smokeless Tobacco: Never Used Alcohol Use Drinks/Week oz/Week Comments No 0 Standard 0.0 drinks or equivalent Sex Assigned at Date Recorded Not on file Last Filed Vital Signs Vital Sign Reading Time Taken Blood Pressure 131/81 09/07/2017 10:35 AM SKIING TEACHER Pulse 78 09/07/2017 10:35 AM SKIING TEACHER Temperature 36.5 C (97.7 F) 06/28/2016 4:46 AM SKIING TEACHER Respiratory Rate - - Oxygen Saturation 94% 06/28/2016 4:46 AM SKIING TEACHER Inhaled Oxygen - - Concentration Weight 81.6 kg (180 lb) 09/07/2017 10:35 AM SKIING TEACHER Height 172.7 cm (5' 8") 09/07/2017 10:35 AM SKIING TEACHER Body Mass Index 27.37 09/07/2017 10:35 AM SKIING TEACHER Plan of Treatment Health Maintenance Due Date Last Done Comments PHYSICAL (COMPREHENSIVE) 1986 EXAM PERTUSSIS VACCINE 1990 HIV SCREENING 1994 TETANUS VACCINE 1996 CERVICAL CANCER SCREENING 2009 INFLUENZA VACCINE 02/06/2018 Results Not on filefrom Last 3 Months
--- OUTSIDE RECORDS SUMMARY | 2018-04-23 06:18 | XMS REPORT ---
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 Active 580714012 Problem Esophageal stricture K22.2 Active 09592444 Problem Overweight (BMI 25.0-29.9) E66.3 Active 444790428 Problem Left foot drop M21.372 Active 487943340303794 Problem Hirsutism L68.0 Active 924318385 Problem Foot drop, right foot M21.371 Active 2326092 Problem Vitamin deficiency, unspecified E56.9 Active 22620107 Problem 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 Active 117422946 ALLERGIES No Information ENCOUNTERS Encounter Location Date Diagnosis [place] [id number] [place] [address] November, [facility] [address] [place] [address] November, General medical examination Z00.00 [facility] [address] [place] [id number] [place] [address] November, General medical examination Z00.00 ; Vitamin deficiency, unspecified E56.9 ; Status following gastric bypass for weight loss Z98.84 ; 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 and Overweight (BMI 25.0- 29.9) E66.3 [place] [address] [place] [address] May, Vitamin deficiency, unspecified E56.9 [place] [address] [address] Jan, [place] [address] [place] [id number] [place] [address] Jan, [place] [address] [place] [id number] [place] [address] November, [place] [address] [address] Jul, General medical examination Z00.00 ; Yeast dermatitis B37.2 ; Left foot drop M21.372 ; Foot drop, right foot M21.371 ; Pain in right knee M25.561 ; Pain in left knee M25.562 ; Hirsutism L68.0 ; 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 ; Vitamin deficiency, unspecified E56.9 and Status following gastric bypass for weight loss Z98.84 [place] [address] [place] [id number] [place] [address] Jun, Weakness R53.[address] [address] May, [place] [id number] [place] [address] Feb, Cardiomyopathy I42.9 ; Tachycardia R00.0 ; Dizziness R42 and Obesity (BMI 30.0-34.9) E66.9 [place] [address] [place] [id number] [place] [address] Feb, [place] [id number] [place] [address]- [address] Feb, Decreased cardiac ejection fraction R93.1 ; Vitamin D deficiency E55.9 ; Sludge in gallbladder K82.8 and Weakness R53.1 [place] [id number] [place] [address] Oct, [address] [place] [address] Oct, [facility] [address] [place] [id number] [place] [address]- [address] Apr, History of urinary infection Z87.440 ; Seizure R56.9 and Hematuria R31.9 [facility] [address] [place] [id number] [place] [address]- [address] Apr, Seizure R56.9 and Tension headache G44.209 [facility] [address] [place] [id number] [place] [address] Apr, [facility] [address] [place] [id number] [place] [address] 80[address]- [address] Oct, [facility] [address] [place] [id number] [place] [address] 0[address]31- [address] Oct, [facility] [address] [place] [id number] [place] [address] Jun, [facility] [address] [place] [id number] [place] [address] 34[address]- [address] Jun, [facility] [address] [place] [id number] [place] [address]- [address] Jun, [facility] [address] [place] [address] 67[address]- [address] Jun, [facility] [address] [place] [id number] [place] [address]- [address] Jun, IMMUNIZATIONS No Known Immunizations SOCIAL HISTORY Never Assessed REASON FOR VISIT lab orders PLAN OF CARE VITAL SIGNS MEDICATIONS Unknown [...] Dilatiation [facility] Surgical History Esophagel Dilation [facility] Hospitalization History N/V/wt loss, hives---unknown origin 2008 Hospitalization History [facility] for 3 weeks 01/2016 Hospitalization History [facility] for 1 week 01/2016 Hospitalization History [facility] 06/2016
--- OUTSIDE RECORDS SUMMARY | 2018-04-23 06:18 | XMS REPORT | Encounter Summary ---
Author Author [facility] Organization [facility] Address Unknown Phone Unavailable Care Team Providers Care Logging Rafter Laborer Name Role Phone Rita Eagle MD Unavailable Juany Hernández MD Unavailable Carol Morillo PCP Opal Dang RN Unavailable Unavailable David Schrader MD Unavailable Mando Wilkinson MD Unavailable Reason for Visit * Reason Comments General Question Encounter Details Date Type Department Care Team Description 03/12/2018 Telephone [facility] Reagan Wilkerson MD General Question Physicians-Neurology [address] [facility] [place] [address] [place] [address] [place], [place] [phone] [address] [phone] Social History Tobacco Use Types Packs/Day Years Used Date Never Smoker Smokeless Tobacco: Never Used Alcohol Use Drinks/Week oz/Week Comments No 0 Standard 0.0 drinks or equivalent Sex Assigned at Date Recorded Not on file as of this encounter Functional Status Functional Status Response Date of Assessment Does the patient have a hearing impairment: No 07/06/2016 Does the patient have a visual impairment: No 07/06/2016 Does the patient have impaired ambulation: Yes 07/06/2016 Does the patient have an activity of daily living No 07/06/2016 (ADL) impairment: Does the patient have an instrumental activity of Yes 07/06/2016 daily living (IADL) impairment: Cognitive Status Response Date of Assessment Does the patient have a cognitive impairment: No 07/06/2016 as of this encounter Miscellaneous Notes * Telephone Encounter - Brandi Acevedo, CHASE - 03/12/2018 3:06 PM CDT LVM notifying Jina that Jina Mayco is no longer here. Jina called back and follow up apt was rescheduled for April [address] Wilkerson. in this encounter Plan of Treatment Not on fileas of this encounter Visit Diagnoses Not on filein this encounter
--- OUTSIDE RECORDS SUMMARY | 2018-04-23 06:19 | XMS REPORT ---
Author Author ANTHONY PEREZ Organization [employer] Address Unknown Phone Unavailable Care Team Providers Care Car Checker Name Role Phone ANTHONY PEREZ CP Unavailable Allergies No Known Allergies Problems Problem Type Condition Code Onset Dates Condition Status Problem Weakness R53.1 Active Problem Status following gastric bypass for weight loss Z98.84 Active Problem Sludge in gallbladder K82.8 Active Problem Decreased cardiac ejection fraction R93.1 February 04, 2016 Active Problem Esophageal stricture K22.2 Active Problem Vitamin D deficiency E55.9 Active Medications Medication Code System Code Instructions Start Date End Date Status Dosage Cholecalciferol [facility] [id number] UNIT Orally twice a week x 3 weeks then weekly 1 capsule Results No Known Results Summary Purpose [employer] Submission
--- OUTSIDE RECORDS SUMMARY | 2018-04-23 06:19 | XMS REPORT ---
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 Active 816932970 Problem Pain in right knee M25.561 Active 92388442 Problem Pain in left knee M25.562 Active 21474526 Problem Hirsutism L68.0 Active 775602070 Problem Foot drop, right foot M21.371 Active 8286992 Problem Status following gastric bypass for weight loss Z98.84 Active 015251616 Problem Vitamin D deficiency E55.9 Active 25175234 Problem Decreased cardiac ejection fraction R93.1 Jan, Active 100486533011593 Problem Weakness R53.1 Active 02062676 Problem Esophageal stricture K22.2 Active 19403006 Problem Sludge in gallbladder K82.8 Active 01090651 ALLERGIES Substance Reaction Event Type Date Status N.K.D.A. Unknown Non Drug Allergy Jul, Unknown SOCIAL HISTORY No smoking Hx information available PLAN OF CARE Activity Details Follow Up 1 Year, prn Reason: VITAL SIGNS Height 70.5 in 2016-08-02 Weight 182.6 lbs 2016-08-02 Temperature 98.7 degrees Fahrenheit 2016-08-02 Heart Rate 80 bpm 2016-08-02 Respiratory Rate 20 2016-08-02 BMI 25.83 kg/m2 2016-08-02 Blood pressure systolic 122 mmHg 2016-08-02 Blood pressure diastolic 81 mmHg 2016-08-02 MEDICATIONS Medication Instructions Dosage Frequency Start Date End Date Duration Status Alprazolam 1 MG Orally every 6 hours PRN 1 tablet Active Calcium 600+D3 600-400 MG-UNIT Orally Once a day 1 tablet 24h Jul, Apr, 90 days Active Multivitamin Gummies Adult - Active Ambien 10 mg Orally Once a day 1 tablet at bedtime as needed 24h Active Spironolactone 50 mg Orally Once a day 1/2 tablet daily x 7 days then 1 daily 24h Jul, Jan, 30 day(s) Active Folic Acid 1 MG Orally Once a day 1 tablet 24h Apr, 90 days Active Cholecalciferol 29665 UNIT Orally twice a week x 3 weeks then weekly 1 capsule Active Tylenol/Codeine #3 300-30 MG Orally every 6 hrs for severe joint pain 1 tablet as needed Jul, Active Biotin 1000 MCG Orally Once a day 1 tablet 24h Apr, 90 days Active Vitamin A 90394 UNIT Orally Once a day 1 capsule 24h Apr, 90 days Active Stool Softener 100 MG Orally Once a day 1 capsule as needed 24h Active Vitamin E 400 UNIT Orally Once a day 1 capsule 24h Jul, 90 day( s) Active Ferrous Sulfate 325 (65 Fe) MG Orally Once a day 1 tablet 24h Jul, 90 days Active Cyanocobalamin 1000 MCG/ML Injection once monthly 1 ml Jul, Active Vitamin E 400 UNIT Orally Once a day 1 capsule 24h 90 days Active Copper Caps 2 MG Orally Once a day 1 capsule 24h Apr, 90 days Active Nystatin 219806 UNIT/GM Externally Twice a day 1 null to affected area 12h Jul, Active iron 325 Oral Once a day 1 tablet 24h Active Magnesium 400 MG Orally Once a day 1 capsule 24h Active Tylenol Allergy Complete 2-30-500 MG Orally every 6 hrs 2 tablets as needed 6h Active Thiamine 50 mg Orally Once a day 5 capsules (250mg) 24h Jul, Oct, 30 day(s) Active Benadryl 25 MG Orally every 6 hrs 1 capsule as needed 6h Active B1 Natural 250 MG Active Senokot 8.6 MG Orally Once a day 2 tablets at bedtime as needed 24h Active Depo-Provera by intramuscular route Jun, Active Magnesium 400 MG Orally Once a day 1 capsule with a meal 24h Jul, Apr, 90 days Active Pantoprazole Sodium 40 MG Orally Once a day 1 tablet 24h Active Nystatin 360343 UNIT/GM Externally Twice a day 1 application to affected area 12h Jul, Active RESULTS No Results PROCEDURES Procedure Date Ordered Related Diagnosis Body Site Preventive Care Est Pt. Age 18-39 Aug 02, 2016 IMMUNIZATIONS No Known Immunizations
--- OUTSIDE RECORDS SUMMARY | 2018-04-23 06:19 | XMS REPORT ---
Author Author ANTHONY PEREZ Organization [employer] Address Unknown Phone Unavailable Care Team Providers Care Collar Turner Name Role Phone ANTHONY PEREZ CP Unavailable Allergies No Known Allergies Problems Problem Type Condition Code Onset Dates Condition Status Problem Dysuria 788.1 Active Medications No Known Medications Results No Known Results Summary Purpose [employer] Submission
--- OUTSIDE RECORDS SUMMARY | 2018-04-23 06:19 | XMS REPORT ---
Author Author AN[facility]ERE[facility] Address [address] [place] [address] Care Team Providers Care Desktop Support Specialist Name Role Phone ANTHONY PEREZ Unavailable PROBLEMS Type Condition ICD9-CM Code [id number] Code Onset Dates Condition Status SNOMED Code Assessment Weakness R53.1 Jun, Active 52473358 Problem Sludge in gallbladder K82.8 Active 84796291 Problem Weakness R53.1 Active 91716190 Problem Vitamin D deficiency E55.9 Active 29245664 Problem Decreased cardiac ejection fraction R93.1 Jan, Active 158209563065644 Problem Status following gastric bypass for weight loss Z98.84 Active 592533531 Problem Esophageal stricture K22.2 Active 37908160 ALLERGIES Unknown Allergies SOCIAL HISTORY No smoking Hx information available PLAN OF CARE VITAL SIGNS MEDICATIONS Unknown Medications RESULTS No Results PROCEDURES No Known procedures IMMUNIZATIONS No Known Immunizations
--- OUTSIDE RECORDS SUMMARY | 2018-04-23 06:19 | XMS REPORT ---
Author Author ANTHONY PEREZ Organization [employer] Address Unknown Phone Unavailable Care Team Providers Care Chocolate Maker Name Role Phone ANTHONY PEREZ CP Unavailable [...] Instructions Start Date End Date Status Dosage Ambien [facility] [address]-39 10 mg Orally Once a day 1 tablet at bedtime as needed Results No Known Results Summary Purpose [employer] Submission
--- OUTSIDE RECORDS SUMMARY | 2018-04-23 06:19 | XMS REPORT ---
Author Author ANTHONY PEREZ [facility] [employer] Address Unknown Phone Unavailable Care Team Providers Care Acquisition Marketing Manager Name Role Phone ANTHONY PEREZ CP Unavailable Allergies, Adverse Reactions, Alerts Substance Reaction Event Type N.K.D.A. Info Not Available Non Drug Allergy Problems Problem Type Condition Code Onset Dates Condition Status Assessment Weakness R53.1 Active Assessment Vitamin D deficiency E55.9 Active Assessment Sludge in gallbladder K82.8 Active Problem Weakness R53.1 Active Problem Status following gastric bypass for weight loss Z98.84 Active Problem Sludge in gallbladder K82.8 Active Problem Decreased cardiac ejection fraction R93.1 February 04, 2016 Active Assessment Decreased cardiac ejection fraction R93.1 Active Problem Esophageal stricture K22.2 Active Problem Vitamin D deficiency E55.9 Active Medications Medication Code System Code Instructions Start Date End Date Status Dosage Benadryl [facility] [address]-28 25 MG Orally every 6 hrs 1 capsule as needed Senokot [facility] [address]-26 8.6 MG Orally Once a day 2 tablets at bedtime as needed Zofran [facility] [address]-10 4 MG Orally every 4 hours 2 tablets Stool Softener [facility] [address]-74 100 MG Orally Once a day 1 capsule as needed Cholecalciferol [facility] [address] 54401 UNIT Orally twice a week x 3 weeks then weekly 1 capsule Alprazolam [facility] [address]-41 1 MG Orally every 6 hours PRN 1 tablet Ambien [facility] [address]-66 10 MG Orally Once a day 1 tablet at bedtime as needed Folic Acid [facility] [address]-16 1 MG Orally Once a day 1 tablet Depo-Provera [facility] [address]-82 Jul 03, 2014 by intramuscular route Pantoprazole Sodium [facility] [address]-06 40 MG Orally Once a day 1 tablet Procedures Procedure Coding System Code Date Office Visit, Est Pt., Level 4 CPT-4 04412 Feb 16, 2016 Vital Signs Date/Time: Feb 16, 2016 Cardiac Monitoring Heart Rate 80 bpm Weight 229.2 lbs Height 70.5 in BMI 32.42 Index Blood Pressure Diastolic 84 mmHg Blood Pressure Systolic 122 mmHg Results No Known Results Summary Purpose [employer] Submission
--- OUTSIDE RECORDS SUMMARY | 2018-04-23 06:19 | XMS REPORT ---
Author Author ANTHONY PEREZ Organization [employer] Address Unknown Phone Unavailable Care Team Providers Care Security Dispatcher Name Role Phone ANTHONY PEREZ CP Unavailable Allergies No Known Allergies Problems Problem Type Condition Code Onset Dates Condition Status Problem Dysuria 788.1 Active Medications Medication Code System Code Instructions Start Date End Date Status Dosage Depakote [facility] [address]-04 500 MG Orally Once a day 1 tablet Results No Known Results Summary Purpose [employer] Submission
--- OUTSIDE RECORDS SUMMARY | 2018-04-23 06:19 | XMS REPORT ---
Author Author ANTHONY PEREZ [facility] [employer] Address Unknown Phone Unavailable Care Team Providers Care Plant Physiologist Name Role Phone ANTHONY PEREZ CP Unavailable Allergies, Adverse Reactions, Alerts Substance Reaction Event Type N.K.D.A. Info Not Available Non Drug Allergy Problems Problem Type Condition Code Onset Dates Condition Status Assessment History of urinary infection Z87.440 Active Assessment Seizure R56.9 Active Problem Dysuria 788.1 Active Assessment Hematuria R31.9 Active Medications Medication Code System Code Instructions Start Date End Date Status Dosage Benadryl [facility] [address]-04 25 MG Orally every 6 hrs 1 capsule as needed Ibuprofen [facility] [address]-86 800 MG Orally Three times a day 1 tablet Depo-Provera [facility] [address]-91 Jul 03, 2014 by intramuscular route Depakote ER [facility] [address]-63 500 MG Orally not defined Ambien [facility] [address]-26 10 MG Orally Once a day 1 tablet at bedtime as needed Procedures Procedure Coding System Code Date URINE CULTURE/COLONY COUNT CPT-4 40596 May 05, 2015 Office Visit, Est Pt., Level 4 CPT-4 06355 May 05, 2015 Vital Signs Date/Time: May 05, 2015 Temperature 97.1 F Weight 268.9 lbs Height 70.5 in BMI 38.03 Index Blood Pressure Diastolic 80 mmHg Blood Pressure Systolic 122 mmHg Cardiac Monitoring Heart Rate 60 bpm Results Name Result Date Reference Range Unit Abnormality Flag UA W/CULTURE IF INDICATED (IN HOUSE) CULTURE, URINE Summary Purpose [employer] Submission
--- OUTSIDE RECORDS SUMMARY | 2018-04-23 06:19 | XMS REPORT ---
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 Active 887462074 Problem Pain in right knee M25.561 Active 29957217 Problem Pain in left knee M25.562 Active 67816529 Problem Hirsutism L68.0 Active 180426844 Problem Foot drop, right foot M21.371 Active 0746509 Problem Status following gastric bypass for weight loss Z98.84 Active 789318821 Problem Vitamin D deficiency E55.9 Active 20447227 Problem Decreased cardiac ejection fraction R93.1 Jan, Active 391922158411176 Problem Weakness R53.1 Active 78294391 Problem Esophageal stricture K22.2 Active 52889470 Problem Sludge in gallbladder K82.8 Active 53204385 ALLERGIES No Information SOCIAL HISTORY Never Assessed PLAN OF CARE VITAL SIGNS MEDICATIONS Medication Instructions Dosage Frequency Start Date End Date Duration Status Ambien 10 mg Orally Once a day 1 tablet at bedtime as needed 24h Active RESULTS No Results PROCEDURES No Known procedures IMMUNIZATIONS No Known Immunizations MEDICAL (GENERAL) HISTORY Type Description Date Medical History new onset seizure 04-24-15 Medical History GB Sludge 2015 Medical History Hospitalization 06-23 [facility] 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
--- OUTSIDE RECORDS SUMMARY | 2018-04-23 06:19 | XMS REPORT ---
Author Author ANTHONY PEREZ Organization [employer] Address Unknown Phone Unavailable Care Team Providers Care Vulnerability Assessment Analyst Name Role Phone ANTHONY PEREZ CP Unavailable Allergies No Known Allergies Problems Problem Type Condition Code Onset Dates Condition Status Assessment Seizure R56.9 Active Assessment Tension headache G44.209 Active Problem Dysuria 788.1 Active Medications No Known Medications Procedures Procedure Coding System Code Date ASSAY OF HOMOCYSTINE CPT-4 95382 Apr 27, 2015 ASSAY OF ARSENIC CPT-4 15433 Apr 27, 2015 ANTINUCLEAR ANTIBODIES CPT-4 14905 Apr 27, 2015 BLOOD FOLIC ACID SERUM CPT-4 84376 Apr 27, 2015 RBC SED RATE, AUTOMATED CPT-4 77423 Apr 27, 2015 ASSAY OF MERCURY CPT-4 49216 Apr 27, 2015 ASSAY OF LEAD CPT-4 08118 Apr 27, 2015 ASSAY THYROID STIM HORMONE CPT-4 53321 Apr 27, 2015 ASSAY OF PROTEIN CPT-4 72545 Apr 27, 2015 VITAMIN B-12 CPT-4 09343 Apr 27, 2015 ASSAY OF SERUM PROTEINS CPT-4 51412 Apr 27, 2015 VENIPUNCT, ROUTINE* CPT-4 28261 Apr 27, 2015 C-REACTIVE PROTEIN CPT-4 16877 Apr 27, 2015 ANGIOTENSIN I ENZYME TEST CPT-4 59494 Apr 27, 2015 Results Name Result Date Reference Range Unit Abnormality Flag ROUTINE VENIPUNCTURE Summary Purpose [employer] Submission
--- OUTSIDE RECORDS SUMMARY | 2018-04-23 06:21 | XMS REPORT | Continuity of Care Document ---
Author Author [facility] Address Unknown Phone Unavailable Allergies Active Description Code Type Severity Reaction Onset Reported/Identified Relationship to Patient Clinical Status Yes No Known Drug Allergies [id number] Drug Allergy Mild N/A 07/22/2008 Yes No Known Drug Allergies [id number] Drug Allergy Unknown N/A 04/17/2018 Medications There is no data. Problems Date Dx Coded Attending Type Code Diagnosis Diagnosed By 06/07/1451 ANTHONY PEREZ Ot R53.1 WEAKNESS 07/03/2014 RADHA STOREY APRN R 788.1 DYSURIA 11/03/2015 Ot V16.41 FAM HX-MAL NEOP-OVARY 11/03/2015 Ot 611.72 LUMP OR MASS IN BREAST 12/03/2015 BOGDAN POP MD Ot K21.9 GASTRO-ESOPHAGEAL REFLUX DISEASE WITHOUT 12/10/2015 BOGDAN POP MD Ot E66.01 MORBID (SEVERE) OBESITY DUE TO EXCESS CA 12/10/2015 BOGDAN POP MD Ot Z01.812 ENCOUNTER FOR PREPROCEDURAL LABORATORY E 12/10/2015 BOGDAN POP MD Ot Z11.2 ENCOUNTER FOR SCREENING FOR OTHER BACTER 12/16/2015 Ot V16.41 FAM HX-MAL NEOP-OVARY 12/16/2015 Ot 611.72 LUMP OR MASS IN BREAST 12/16/2015 BOGDAN POP MD Ot K21.9 GASTRO-ESOPHAGEAL REFLUX DISEASE WITHOUT 12/17/2015 BOGDAN POP MD Ot E66.01 MORBID (SEVERE) OBESITY DUE TO EXCESS CA 12/17/2015 BOGDAN POP MD Ot M19.90 UNSPECIFIED OSTEOARTHRITIS, UNSPECIFIED 12/17/2015 BOGDAN POP MD Ot Z68.41 BODY MASS INDEX (BMI) 40.0-44.9, ADULT 01/04/2016 RHINA WILKERSON APRN Ot E86.0 DEHYDRATION 01/04/2016 RHEA, RHINA L POWER SHOVEL MECHANIC Ot R11.0 NAUSEA 01/04/2016 RHEA, RHINA L POWER SHOVEL MECHANIC Ot R53.83 OTHER FATIGUE 01/06/2016 RHEA, RHINA L POWER SHOVEL MECHANIC Ot E86.0 DEHYDRATION 01/06/2016 RHEA, RHINA L POWER SHOVEL MECHANIC Ot R11.0 NAUSEA 01/06/2016 RHEA, RHINA L POWER SHOVEL MECHANIC Ot R53.83 OTHER FATIGUE 01/19/2016 Ot V16.41 FAM HX-MAL NEOP-OVARY 01/19/2016 Ot 611.72 LUMP OR MASS IN BREAST 01/19/2016 BOGDAN POP MD Ot K21.9 GASTRO-ESOPHAGEAL REFLUX DISEASE WITHOUT 01/19/2016 RHEA, RHINA L POWER SHOVEL MECHANIC Ot E86.0 DEHYDRATION 01/19/2016 [place], RHINA L POWER SHOVEL MECHANIC Ot R11.0 NAUSEA 01/19/2016 [place], RHINA L POWER SHOVEL MECHANIC Ot R53.83 OTHER FATIGUE 01/19/2016 BOGDAN POP MD Ot E86.0 DEHYDRATION 01/19/2016 BOGDAN POP MD Ot E87.6 HYPOKALEMIA 01/19/2016 BOGDAN POP MD Ot K22.4 DYSKINESIA OF ESOPHAGUS 01/19/2016 BOGDAN POP MD Ot N39.0 URINARY TRACT INFECTION, SITE NOT SPECIF 01/19/2016 BOGDAN POP MD Ot R11.2 NAUSEA WITH VOMITING, UNSPECIFIED 01/19/2016 BOGDAN POP MD Ot Z98.84 BARIATRIC SURGERY STATUS 01/21/2016 BOGDAN POP MD Ot E86.0 DEHYDRATION 01/21/2016 BOGDAN POP MD Ot E87.6 HYPOKALEMIA 01/21/2016 BOGDAN POP MD Ot K22.4 DYSKINESIA OF ESOPHAGUS 01/21/2016 BOGDAN POP MD Ot N39.0 URINARY TRACT INFECTION, SITE NOT SPECIF 01/21/2016 BOGDAN POP MD Ot R11.2 NAUSEA WITH VOMITING, UNSPECIFIED 01/21/2016 BOGDAN POP MD Ot Z98.84 BARIATRIC SURGERY STATUS 01/22/2016 BOGDAN POP MD Ot E86.0 DEHYDRATION 01/22/2016 BOGDAN POP MD Ot E87.6 HYPOKALEMIA 01/22/2016 BOGDAN POP MD Ot K22.4 DYSKINESIA OF ESOPHAGUS 01/22/2016 BOGDAN POP MD, Ot N39.0 URINARY TRACT INFECTION, SITE NOT SPECIF 01/22/2016 BOGDAN POP MD, Ot R11.2 NAUSEA WITH VOMITING, UNSPECIFIED 01/22/2016 BOGDAN POP MD Ot Z98.84 BARIATRIC SURGERY STATUS 01/25/2016 Ot V16.41 FAM HX-MAL NEOP-OVARY 01/25/2016 Ot 611.72 LUMP OR MASS IN BREAST 01/25/2016 BOGDAN POP MD, Ot K21.9 GASTRO-ESOPHAGEAL REFLUX DISEASE WITHOUT 01/25/2016 RHEA, RHINA L POWER SHOVEL MECHANIC Ot E86.0 DEHYDRATION 01/25/2016 RHEA, RHINA L POWER SHOVEL MECHANIC Ot R11.0 NAUSEA 01/25/2016 RHEA, RHINA L POWER SHOVEL MECHANIC Ot R53.83 OTHER FATIGUE 01/25/2016 RHEA, RHINA L POWER SHOVEL MECHANIC Ot E86.0 DEHYDRATION 01/25/2016 RHEA, RHINA L POWER SHOVEL MECHANIC Ot R11.2 NAUSEA WITH VOMITING, UNSPECIFIED 01/25/2016 RHEA, RHINA L POWER SHOVEL MECHANIC Ot R53.83 OTHER FATIGUE 01/31/2016 BOGDAN POP MD Ot K29.70 GASTRITIS, UNSPECIFIED, WITHOUT BLEEDING 01/31/2016 BOGDAN POP MD Ot K31.89 OTHER DISEASES OF STOMACH AND DUODENUM 01/31/2016 BOGDAN POP MD Ot 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 02/03/2016 BOGDAN POP MD Ot K29.70 GASTRITIS, UNSPECIFIED, WITHOUT BLEEDING 02/03/2016 BOGDAN POP MD Ot K31.89 OTHER DISEASES OF STOMACH AND DUODENUM 02/03/2016 BOGDAN POP MD Ot 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 02/23/2016 Ot V16.41 FAM HX-MAL NEOP-OVARY 02/23/2016 Ot 611.72 LUMP OR MASS IN BREAST 02/23/2016 BOGDAN POP MD Ot K21.9 GASTRO-ESOPHAGEAL REFLUX DISEASE WITHOUT 02/23/2016 RHEA, RHINA L POWER SHOVEL MECHANIC Ot E86.0 DEHYDRATION 02/23/2016 RHEA, RHINA L POWER SHOVEL MECHANIC Ot R11.0 NAUSEA 02/23/2016 RHEACORINNEIN L POWER SHOVEL MECHANIC Ot R53.83 OTHER FATIGUE 02/23/2016 CORINNE WILKERSONIN L POWER SHOVEL MECHANIC Ot E86.0 DEHYDRATION 02/23/2016 RHEA, RHINA L POWER SHOVEL MECHANIC Ot R11.2 NAUSEA WITH VOMITING, UNSPECIFIED 02/23/2016 CORINNE WILKERSONIN L POWER SHOVEL MECHANIC Ot R53.83 OTHER FATIGUE 02/25/2016 MADANTHONY Skelton DIRECTOR OF ROOMS Ot R53.1 WEAKNESS 02/25/2016 MADLANTHONY DIRECTOR OF ROOMS Ot R53.1 WEAKNESS 03/01/2016 Ot V16.41 FAM HX-MAL NEOP-OVARY 03/01/2016 Ot 611.72 LUMP OR MASS IN BREAST 03/01/2016 BOGDAN POP MD Ot K21.9 GASTRO-ESOPHAGEAL REFLUX DISEASE WITHOUT 03/01/2016 RHEACORINNE TAVERAIN L POWER SHOVEL MECHANIC Ot E86.0 DEHYDRATION 03/01/2016 CORINNE WILKERSONIN L POWER SHOVEL MECHANIC Ot R11.0 NAUSEA 03/01/2016 RHEA, RHINA L POWER SHOVEL MECHANIC Ot R53.83 OTHER FATIGUE 03/01/2016 RHEACORINNE TAVERAIN L POWER SHOVEL MECHANIC Ot E86.0 DEHYDRATION 03/01/2016 RHEA RHINA L POWER SHOVEL MECHANIC Ot R11.2 NAUSEA WITH VOMITING, UNSPECIFIED 03/01/2016 RHEA RHINA L POWER SHOVEL MECHANIC Ot R53.83 OTHER FATIGUE 03/01/2016 ANTHONY PEREZ DIRECTOR OF ROOMS Ot R53.1 WEAKNESS 03/03/2016 KEITH AHMADI MD Ot I42.9 CARDIOMYOPATHY, UNSPECIFIED 03/03/2016 KEITH AHMADI MD Ot R00.0 TACHYCARDIA, UNSPECIFIED 03/03/2016 KEITH AHMADI MD Ot R42 DIZZINESS AND GIDDINESS 03/07/2016 KEITH AHMADI MD Ot E78.5 HYPERLIPIDEMIA, UNSPECIFIED 03/07/2016 KEITH AHMADI MD Ot I10 ESSENTIAL (PRIMARY) HYPERTENSION 03/07/2016 KEITH AHMADI MD Ot 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 03/07/2016 KEITH AHMADI MD Ot I42.9 CARDIOMYOPATHY, UNSPECIFIED 03/07/2016 KEITH AHMADI MD Ot I50.22 CHRONIC SYSTOLIC (CONGESTIVE) HEART FAIL 03/07/2016 KEITH AHMADI MD Ot R00.2 PALPITATIONS 03/07/2016 KEITH AHMADI MD Ot Z79.899 OTHER FDC (CURRENT) DRUG THERAPY 03/17/2016 KEITH AHMADI MD Ot E78.5 HYPERLIPIDEMIA, UNSPECIFIED 03/17/2016 KEITH AHMADI MD Ot I10 ESSENTIAL (PRIMARY) HYPERTENSION 03/17/2016 KEITH AHMADI MD Ot 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 03/17/2016 KEITH AHMADI MD Ot I42.9 CARDIOMYOPATHY, UNSPECIFIED 03/17/2016 KEITH AHMADI MD Ot I50.22 CHRONIC SYSTOLIC (CONGESTIVE) HEART FAIL 03/17/2016 KEITH AHMADI MD Ot R00.2 PALPITATIONS 03/17/2016 KEITH AHMADI MD Ot Z79.899 OTHER VEHICLE PAINTER (CURRENT) DRUG THERAPY 03/28/2016 KEITH AHMADI MD Ot E78.5 HYPERLIPIDEMIA, UNSPECIFIED 03/28/2016 KEITH AHMADI MD Ot I10 ESSENTIAL (PRIMARY) HYPERTENSION 03/28/2016 KEITH AHMADI MD Ot 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 03/28/2016 KEITH AHMADI MD Ot I42.9 CARDIOMYOPATHY, UNSPECIFIED 03/28/2016 KEITH AHMADI MD Ot I50.22 CHRONIC SYSTOLIC (CONGESTIVE) HEART FAIL 03/28/2016 KEITH AHMADI MD Ot R00.2 PALPITATIONS 03/28/2016 KEITH AHMADI MD Ot Z79.899 OTHER FDC (CURRENT) DRUG THERAPY 04/13/2016 MADL, ANTHONY L DIRECTOR OF ROOMS Ot R53.1 WEAKNESS 04/21/2016 MADL, ANTHONY L DIRECTOR OF ROOMS Ot R53.1 WEAKNESS 04/23/2016 CORINNE WILKERSONIN L POWER SHOVEL MECHANIC Ot E86.0 DEHYDRATION 04/23/2016 CORINNE WILKERSONIN L POWER SHOVEL MECHANIC Ot R11.2 NAUSEA WITH VOMITING, UNSPECIFIED 04/23/2016 CORINNE WILKERSONIN L POWER SHOVEL MECHANIC Ot R53.83 OTHER FATIGUE 06/13/2016 BOGDAN POP MD Ot D64.9 ANEMIA, UNSPECIFIED 06/13/2016 BOGDAN POP MD Ot R53.1 WEAKNESS 06/13/2016 BOGDAN POP MD, Ot R53.83 OTHER FATIGUE 06/13/2016 Ot V16.41 FAM HX-MAL NEOP-OVARY 06/13/2016 Ot 611.72 LUMP OR MASS IN BREAST 06/13/2016 BOGDAN POP MD Ot K21.9 GASTRO-ESOPHAGEAL REFLUX DISEASE WITHOUT 06/13/2016 RHEA, RHINA L POWER SHOVEL MECHANIC Ot E86.0 DEHYDRATION 06/13/2016 RHEA, RHINA L POWER SHOVEL MECHANIC Ot R11.0 NAUSEA 06/13/2016 RHEA, RHINA L POWER SHOVEL MECHANIC Ot R53.83 OTHER FATIGUE 06/13/2016 KEITH AHMADI MD Ot I42.9 CARDIOMYOPATHY, UNSPECIFIED 06/13/2016 GALDINO HOLBROOK, KEITH Carrizales Ot R00.0 TACHYCARDIA, UNSPECIFIED 06/13/2016 KEITH AHMADI MD Ot R42 DIZZINESS AND GIDDINESS 06/13/2016 RHEA, RHINA L POWER SHOVEL MECHANIC Ot E86.0 DEHYDRATION 06/13/2016 RHEA, RHINA L POWER SHOVEL MECHANIC Ot R11.2 NAUSEA WITH VOMITING, UNSPECIFIED 06/13/2016 RHEA, RHINA L POWER SHOVEL MECHANIC Ot R53.83 OTHER FATIGUE 06/13/2016 BOGDAN POP MD Ot D64.9 ANEMIA, UNSPECIFIED 06/13/2016 BOGDAN POP MD Ot R53.1 WEAKNESS 06/13/2016 BOGDAN POP MD Ot R53.83 OTHER FATIGUE 06/14/2016 BOGDAN POP MD, Ot D64.9 ANEMIA, UNSPECIFIED 06/14/2016 BOGDAN POP MD Ot R53.1 WEAKNESS 06/14/2016 BOGDAN POP MD Ot R53.83 OTHER FATIGUE 06/15/2016 BOGDAN POP MD Ot R11.2 NAUSEA WITH VOMITING, UNSPECIFIED 06/15/2016 BOGDAN POP MD Ot R63.4 ABNORMAL WEIGHT LOSS 06/15/2016 BOGDAN POP MD Ot Z01.818 ENCOUNTER FOR OTHER PREPROCEDURAL EXAMIN 06/16/2016 BOGDAN POP MD Ot R11.2 NAUSEA WITH VOMITING, UNSPECIFIED 06/16/2016 BOGDAN POP MD Ot R63.4 ABNORMAL WEIGHT LOSS 06/16/2016 BOGDAN POP MD Ot Z01.818 ENCOUNTER FOR OTHER PREPROCEDURAL EXAMIN 06/16/2016 BOGDAN POP MD, Ot K21.0 GASTRO-ESOPHAGEAL REFLUX DISEASE WITH ES 06/16/2016 BOGDAN POP MD Ot K29.70 GASTRITIS, UNSPECIFIED, WITHOUT BLEEDING 06/16/2016 BOGDAN POP MD Ot 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 06/16/2016 BOGDAN POP MD Ot Z98.84 BARIATRIC SURGERY STATUS 06/19/2016 BOGDAN POP MD Ot K21.0 GASTRO-ESOPHAGEAL REFLUX DISEASE WITH ES 06/19/2016 BOGDAN POP MD Ot K29.70 GASTRITIS, UNSPECIFIED, WITHOUT BLEEDING 06/19/2016 BOGDAN POP MD Ot 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 06/19/2016 BOGDAN POP MD Ot Z98.84 BARIATRIC SURGERY STATUS 06/22/2016 BOGDAN POP MD Ot K21.0 GASTRO-ESOPHAGEAL REFLUX DISEASE WITH ES 06/22/2016 BOGDAN POP MD Ot K29.70 GASTRITIS, UNSPECIFIED, WITHOUT BLEEDING 06/22/2016 BOGDAN POP MD Ot 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 06/22/2016 BOGDAN POP MD Ot Z98.84 BARIATRIC SURGERY STATUS 07/06/2016 ANTHONY PEREZ DIRECTOR OF ROOMS Ot R53.1 WEAKNESS 09/20/2016 ANTHONY PEREZ DIRECTOR OF ROOMS Ot R53.1 WEAKNESS 03/14/2017 Ot 611.72 LUMP OR MASS IN BREAST 03/14/2017 BOGDAN POP MD Ot K21.9 GASTRO-ESOPHAGEAL REFLUX DISEASE WITHOUT 03/14/2017 RHINA WILKERSON POWER SHOVEL MECHANIC Ot E86.0 DEHYDRATION 03/14/2017 RHINA WILKERSON POWER SHOVEL MECHANIC Ot R11.0 NAUSEA 03/14/2017 RHINA WILKERSON POWER SHOVEL MECHANIC Ot R53.83 OTHER FATIGUE 03/14/2017 KEITH AHMADI MD Ot I42.9 CARDIOMYOPATHY, UNSPECIFIED 03/14/2017 KEITH AHMADI MD Ot R00.0 TACHYCARDIA, UNSPECIFIED 03/14/2017 KEITH AHMADI MD Ot R42 DIZZINESS AND GIDDINESS 03/14/2017 RHEA, RHINA L POWER SHOVEL MECHANIC Ot E86.0 DEHYDRATION 03/14/2017 RHEA, RHINA L POWER SHOVEL MECHANIC Ot R11.2 NAUSEA WITH VOMITING, UNSPECIFIED 03/14/2017 RHEA RHINA L POWER SHOVEL MECHANIC Ot R53.83 OTHER FATIGUE 03/14/2017 BOGDAN POP MD Ot D64.9 ANEMIA, UNSPECIFIED 03/14/2017 JOHN POP MDKI Ot R53.1 WEAKNESS 03/14/2017 JOHN POP MDKI Ot R53.83 OTHER FATIGUE 03/14/2017 BOGDAN POP MD Ot D64.9 ANEMIA, UNSPECIFIED 03/14/2017 BOGDAN POP MD Ot R53.1 WEAKNESS 03/14/2017 BOGDAN POP MD Ot R53.83 OTHER FATIGUE 04/23/2017 Ot 611.72 LUMP OR MASS IN BREAST 04/23/2017 BOGDAN POP MD Ot K21.9 GASTRO-ESOPHAGEAL REFLUX DISEASE WITHOUT 04/23/2017 RHEACORINNE TAVERAIN L POWER SHOVEL MECHANIC Ot E86.0 DEHYDRATION 04/23/2017 RHEA RHINA L POWER SHOVEL MECHANIC Ot R11.0 NAUSEA 04/23/2017 RHEA RHINA L POWER SHOVEL MECHANIC Ot R53.83 OTHER FATIGUE 04/23/2017 GALDINO HOLBROOK, KEITH Carrizales Ot I42.9 CARDIOMYOPATHY, UNSPECIFIED 04/23/2017 GALDINO HOLBROOK, KEITH Carrizales Ot R00.0 TACHYCARDIA, UNSPECIFIED 04/23/2017 GALDINO HOLBROOK, KEITH Carrizales Ot R42 DIZZINESS AND GIDDINESS 04/23/2017 RHEACORINNEIN L POWER SHOVEL MECHANIC Ot E86.0 DEHYDRATION 04/23/2017 RHEACORINNEIN L POWER SHOVEL MECHANIC Ot R11.2 NAUSEA WITH VOMITING, UNSPECIFIED 04/23/2017 RHEA RHINA L POWER SHOVEL MECHANIC Ot R53.83 OTHER FATIGUE 04/23/2017 BOGDAN POP MD Ot D64.9 ANEMIA, UNSPECIFIED 04/23/2017 BOGDAN POP MD Ot R53.1 WEAKNESS 04/23/2017 BOGDAN POP MD Ot R53.83 OTHER FATIGUE 04/23/2017 BOGDAN POP MD Ot D64.9 ANEMIA, UNSPECIFIED 04/23/2017 BOGDAN POP MD Ot R53.1 WEAKNESS 04/23/2017 BOGDAN POP MD Ot R53.83 OTHER FATIGUE 04/17/2018 RHINA WILKERSON POWER SHOVEL MECHANIC Ot E86.0 DEHYDRATION 04/17/2018 RHINA WILKERSON POWER SHOVEL MECHANIC Ot R11.2 NAUSEA WITH VOMITING, UNSPECIFIED 04/17/2018 RHINA WILKERSON POWER SHOVEL MECHANIC Ot R53.83 OTHER FATIGUE 04/19/2018 ADKINSDEON Kapadia DO Ot D25.9 LEIOMYOMA OF UTERUS, UNSPECIFIED 04/19/2018 ADKINSDEON Kapadia DO, Ot Z01.810 ENCOUNTER FOR PREPROCEDURAL CARDIOVASCUL 04/19/2018 DEON ADKINS DO Ot Z01.812 ENCOUNTER FOR PREPROCEDURAL LABORATORY E 04/19/2018 DEON ADKINS DO Ot Z11.2 ENCOUNTER FOR SCREENING FOR OTHER BACTER 04/19/2018 DEON ADKINS DO Ot Z80.41 FAMILY HISTORY OF MALIGNANT NEOPLASM OF Procedures Code Description [place] [address] CULTURE URINE 07/03/2014 51543 UA W/ CULTURE IF INDICATED 07/03/2014 [id number] EXCISION OF STOMACH, PERCUTANEOUS ENDOSC 12/16/2015 Results Test Result Range Urine beta human chorionic gonadotropin (hCG) measurement - 03/07/16 11:54 Urine beta human chorionic gonadotropin (hCG) measurement NEGATIVE NEGATIVE Methicillin resistant Staphylococcus aureus (MRSA) screening culture - 12:30 Methicillin resistant Staphylococcus aureus (MRSA) screening culture NEG NRG Complete blood count (CBC) with automated white blood cell (WBC) differential - 06/12/16 17:20 Blood leukocytes automated count (number/volume) 10.9 10*3/uL 4.3-11.0 Blood erythrocytes automated count (number/volume) 4.96 10*6/uL 4.35-5.85 Venous blood hemoglobin measurement (mass/volume) 14.6 g/dL 11.5-16.0 Blood hematocrit (volume fraction) 42 % 35-52 Automated erythrocyte mean corpuscular volume 85 [foz_us] 80-99 Automated erythrocyte mean corpuscular hemoglobin (mass per erythrocyte) 29 pg 25-34 Automated erythrocyte mean corpuscular hemoglobin concentration measurement ( mass/volume) 35 g/dL 32-36 Automated erythrocyte distribution width ratio 13.8 % 10.0-14.5 Automated blood platelet count (count/volume) 286 10*3/uL 130-400 Automated blood platelet mean volume measurement 11.9 [foz_us] 7.4-10.4 Automated blood neutrophils/100 leukocytes 69 % 42-75 Automated blood lymphocytes/100 leukocytes 25 % 12-44 Blood monocytes/100 leukocytes 5 % 0-12 Automated blood eosinophils/100 leukocytes 1 % 0-10 Automated blood basophils/100 leukocytes 0 % 0-10 Blood neutrophils automated count (number/volume) 7.6 10*3 1.8-7.8 Blood lymphocytes automated count (number/volume) 2.7 10*3 1.0-4.0 Blood monocytes automated count (number/volume) 0.6 10*3 0.0-1.0 Automated eosinophil count 0.1 10*3/uL 0.0-0.3 Automated blood basophil count (count/volume) 0.0 10*3/uL 0.0-0.1 Comprehensive metabolic panel - 06/12/16 17:20 Serum or plasma sodium measurement (moles/volume) 139 mmol/L 135-145 Serum or plasma potassium measurement (moles/volume) 3.2 mmol/L 3.6-5.0 Serum or plasma chloride measurement (moles/volume) 107 mmol/L 98-107 Carbon dioxide 18 mmol/L 21-32 Serum or plasma anion gap determination (moles/volume) 14 mmol/L 5-14 Serum or plasma urea nitrogen measurement (mass/volume) 8 mg/dL 7-18 Serum or plasma creatinine measurement (mass/volume) 0.89 mg/dL 0.60-1.30 Serum or plasma urea nitrogen/creatinine mass ratio 9 NRG Serum or plasma creatinine measurement with calculation of estimated glomerular filtration rate > NRG Serum or plasma glucose measurement (mass/volume) 109 mg/dL 70-105 Serum or plasma calcium measurement (mass/volume) 9.9 mg/dL 8.5-10.1 Serum or plasma total bilirubin measurement (mass/volume) 0.9 mg/dL 0.1-1.0 Serum or plasma alkaline phosphatase measurement (enzymatic activity/volume) 60 U/L 40-136 Serum or plasma aspartate aminotransferase measurement (enzymatic activity/ volume) 25 U/L 5-34 Serum or plasma alanine aminotransferase measurement (enzymatic activity/volume ) 30 U/L 0-55 Serum or plasma protein measurement (mass/volume) 7.4 g/dL 6.4-8.2 Serum or plasma albumin measurement (mass/volume) 4.6 g/dL 3.2-4.5 Serum or plasma phosphate measurement (mass/volume) - 06/12/16 17:20 Serum or plasma phosphate measurement (mass/volume) 3.9 mg/dL 2.3-4.7 Magnesium - 06/12/16 17:20 Magnesium 2.3 mg/dL 1.8-2.4 IRON TEST - 06/12/16 17:20 Serum or plasma iron measurement (mass/volume) 33 % 35- 180 Cyanocobalamin measurement - 06/12/16 17:20 Vitamin B12 > pg/mL 200-1000 25-hydroxyvitamin D measurement - 06/12/16 17:20 25-hydroxy vitamin D measurement 112 % 30-100 * Reference lab test name - 06/13/16 14:50 * Reference lab test results Vitamin B12 NR Urine beta human chorionic gonadotropin (hCG) measurement - 06/16/16 12:50 Urine beta human chorionic gonadotropin (hCG) measurement NEGATIVE NEGATIVE THYROID ANALYZER - 11/26/17 13:42 TSH 1.20 mIU/L NRG VITAMIN B1 (THIAMINE) - 11/26/17 13:44 VITAMIN B1 (THIAMINE), BLOOD, LC/MS/MS 153 nmol/L 78-185 VITAMIN A ([facility] ONLY) - 11/26/17 13:56 VITAMIN A (RETINOL) 62 mcg/dL 38-98 VITAMIN E ([facility] ONLY) - 11/26/17 13:56 ALPHA-TOCOPHEROL 11.4 mg/L 5.7-19.9 [id number] 1.2 mg/L < 4.4 Methicillin resistant Staphylococcus aureus (MRSA) screening culture - 08:40 Methicillin resistant Staphylococcus aureus (MRSA) screening culture NEG NRG Complete blood count (CBC) with automated white blood cell (WBC) differential - 04/17/18 08:45 Blood leukocytes automated count (number/volume) 8.7 10*3/uL 4.3-11.0 Blood erythrocytes automated count (number/volume) 4.74 10*6/uL 4.35-5.85 Venous blood hemoglobin measurement (mass/volume) 14.3 g/dL 11.5-16.0 Blood hematocrit (volume fraction) 42 % 35-52 Automated erythrocyte mean corpuscular volume 89 [foz_us] 80-99 Automated erythrocyte mean corpuscular hemoglobin (mass per erythrocyte) 30 pg 25-34 Automated erythrocyte mean corpuscular hemoglobin concentration measurement ( mass/volume) 34 g/dL 32-36 Automated erythrocyte distribution width ratio 13.2 % 10.0-14.5 Automated blood platelet count (count/volume) 248 10*3/uL 130-400 Automated blood platelet mean volume measurement 11.1 [foz_us] 7.4-10.4 Automated blood neutrophils/100 leukocytes 64 % 42-75 Automated blood lymphocytes/100 leukocytes 23 % 12-44 Blood monocytes/100 leukocytes 6 % 0-12 Automated blood eosinophils/100 leukocytes 6 % 0-10 Automated blood basophils/100 leukocytes 0 % 0-10 Blood neutrophils automated count (number/volume) 5.6 10*3 1.8-7.8 Blood lymphocytes automated count (number/volume) 2.0 10*3 1.0-4.0 Blood monocytes automated count (number/volume) 0.6 10*3 0.0-1.0 Automated eosinophil count 0.6 10*3/uL 0.0-0.3 Automated blood basophil count (count/volume) 0.0 10*3/uL 0.0-0.1 Blood type T Indirect antibody screen panel - 04/17/18 08:45 ABO+Rh group AP NRG Blood group antibody screen NEGATIVE NRG Encounters ACCT No. Visit Date/Time Discharge Status Pt. Type Provider Facility Loc./Unit Complaint [id number] 07/03/2014 11:43:00 07/03/2014 23:59:59 CLS Outpatient RADHA STOREY APRN [id number] 04/17/2018 08:23:00 04/17/2018 10:22:00 DIS Outpatient DEON ADKINS DO [facility] PREOP ROBOTIC HYST WITH BSO [id number] 04/23/2017 12:08:00 04/23/2017 23:59:59 CLS Outpatient KOFI COHEN [facility] LAB R03.0 [id number] 04/23/2017 12:00:00 04/23/2017 23:59:59 CLS Outpatient DEON ADKINS DO [facility] LAB K90.9 E55.9 D51.9 D50.9 Z98.84 Z80.41 [id number] 08/30/2016 11:20:00 09/20/2016 14:53:00 DIS Outpatient ANTHONY PEREZ DIRECTOR OF ROOMS [facility] REHAB WEAKNESS [id number] 06/16/2016 12:32:00 06/16/2016 15:30:00 DIS Outpatient BOGDAN POP MD [facility] WEIGHT LOSS;REFLUX [id number] 06/15/2016 11:23:00 06/15/2016 12:17:00 DIS Outpatient BOGDAN POP MD [facility] PREOP WEIGHT LOSS;REFLUX [id number] 06/13/2016 14:40:00 06/13/2016 23:59:59 CLS Outpatient BOGDAN POP MD [facility] LAB WEAKNESS,FATIGUE,ANEMIA [id number] 06/12/2016 16:11:00 06/12/2016 23:59:59 CLS Outpatient BOGDAN POP MD [facility] LAB WEAKNESS,FATIGUE,ANEMIA [id number] 04/24/2016 00:09:00 04/24/2016 23:59:59 CLS Preadmit RHINA WILKERSON POWER SHOVEL MECHANIC [facility] N/V,DEHYDRATION, FATIGUE [id number] 01/24/2016 13:51:00 04/23/2016 00:01:00 DIS Outpatient RHINA WILKERSON POWER SHOVEL MECHANIC [facility] N/V,DEHYDRATION, FATIGUE [id number] 04/03/2016 11:02:00 04/21/2016 14:52:00 DIS Outpatient ANTHONY PEREZ DIRECTOR OF ROOMS [facility] REHAB GENERAL WEAKNESS, DECONDITIONING [id number] 03/07/2016 11:46:00 03/07/2016 23:59:59 CLS Outpatient KEITH AHMADI MD [facility] CATH ABN STRESS,CHF,HTN [id number] 03/01/2016 07:33:00 03/01/2016 23:59:59 CLS Outpatient KEITH AHMADI MD [facility] CARD TACHYCARDIA,DIZZINESS [id number] 01/25/2016 17:00:00 01/31/2016 02:52:00 DIS Outpatient BOGDAN POP MD [facility] NAUSEA,VOMITING, DEHYDRATION,FATIGUE [id number] 01/11/2016 11:00:00 01/22/2016 17:14:00 DIS Inpatient BOGDAN POP MD [facility] 4TH NAUSEA VOMITING,POST GASTRIC SLEEVE [id number] 12/31/2015 11:56:00 12/31/2015 23:59:59 CLS Outpatient RHINA WILKERSON APRN [facility] ABDOMINA PAIN NAUSEA FATIGUE DEHYDRATION [id number] 12/16/2015 10:29:00 12/17/2015 18:40:00 DIS Inpatient BOGDAN POP MD [facility] 4TH MORBID OBESITY [id number] 12/10/2015 11:49:00 12/10/2015 12:32:00 DIS Outpatient BOGDAN POP MD [facility] PREOP MORBID OBESITY [id number] 11/03/2015 10:58:00 11/03/2015 23:59:59 CLS Outpatient BOGDAN POP MD [facility] RAD REFLUX [id number] 05/01/2013 15:53:00 05/01/2013 23:59:59 CLS Outpatient [id number] 04/23/2018 08:00:00 PEN Preadmit DEON ADKINS DO Via [facility] UTERINE FIBROIDS WITHFAMILY HX OVARIAN CA [id number] 11/03/2015 10:57:00 Document Registration [id number] 12/13/2011 10:38:00 Document Registration [id number] 09/14/2011 12:35:00 Document Registration [id number] 11/26/2017 12:40:00 11/26/2017 23:59:59 CLS Outpatient ANTHONY PEREZ APRN [facility] [id number] 11/26/2017 12:40:00 Document Registration
[2018-04-23] MEDS: LACTATED RINGERS 1,000 ML IV PRN ×2 (06:30→08:15)
[2018-04-23] MEDS ORDERED: metroNIDAZOLE 500MG/100ML IVPB 100 ML ONE (06:52)
[2018-04-23] MEDS ORDERED: ceFAZolin 1,000 MG/10 ML (ANCEF) VIAL ONE (06:52)
[2018-04-23] MEDS ORDERED: NS (IVPB) 50 ML ONE (06:52)
[2018-04-23] MEDS ORDERED: ceFAZolin INJECTION 1,000 MG in NS (IVPB) 50 ML IV ONE (07:15)
[2018-04-23] MEDS ORDERED: metroNIDAZOLE 500MG/100ML IVPB 100 ML IV ONE (07:15)
[2018-04-23] MEDS ORDERED: fentaNYL INJECTION 100 MCG/2 ML AMP ONE ×2 (07:18→08:43)
[2018-04-23] MEDS ORDERED: MIDAZOLAM 2 MG/2 ML (VERSED) VIAL ONE (07:18)
[2018-04-23] MEDS ORDERED: BUP/EPI 0.5% 1:200,000 (SENSORCAINE) 30 ML VIAL ONE (07:29)
--- NOTE | 2018-04-23 07:36 | Progress Note-Pre Operative ---
Pre-Operative Progress Note H&P Reviewed The H&P was reviewed, patient examined and no changes noted. Date Seen by Provider: Apr 23, 2018 Time Seen by Provider: 07:20 Date H&P Reviewed: Apr 23, 2018 Time H&P Reviewed: 07:15 Pre-Operative Diagnosis: symptomatic uterine fibroids, endometriosis, enteropelvic adhesions DEON ADKINS DO Apr 23, 2018 07:36
[2018-04-23] MEDS ORDERED: SIMETHICONE 80 MG (MYLICON) CHEW PO PRN (08:00)
[2018-04-23] MEDS ORDERED: ANTACID SUSP 30 ML UDC (MYLANTA) PO PRN (08:00)
[2018-04-23] MEDS ORDERED: ONDANSETRON 4 MG/2 ML (SDV) Z0FRAN IV PRN (08:00)
[2018-04-23] MEDS ORDERED: DOCUSATE SODIUM 100 MG (COLACE) CAP PO PRN (08:00)
[2018-04-23] MEDS ORDERED: HYDROmorphone 2 MG/ML VIAL (DILAUDID) IV PRN (08:00)
[2018-04-23] MEDS ORDERED: HYDROcodone/APAP 7.5 MG/325 MG (LORTAB, LORCET PLUS) TABLET PO PRN (08:00)
[2018-04-23] MEDS ORDERED: CHLORASEPTIC LOZENGE MM PRN (08:00)
[2018-04-23] MEDS: LACTATED RINGERS 1,000 ML IV SCH ×2 (08:15→10:24)
[2018-04-23] MEDS ORDERED: ONDANSETRON 4 MG/2 ML (SDV) Z0FRAN ONE ×2 (08:45→09:29)
[2018-04-23] MEDS ORDERED: ROCURONIUM 10 MG/ML 5 ML SYRINGE IV ONE (08:45)
[2018-04-23] MEDS ORDERED: DEXAMETHASONE 10 MG/ML (DECADRON) 1 ML VIAL ONE (08:45)
[2018-04-23] MEDS ORDERED: LIDOCAINE PF 2% 5 ML (XYLOCAINE) VIAL ONE (08:45)
[2018-04-23] MEDS: KETOROLAC 30 MG/ML VIAL IV PRN ×2 (09:20→15:46)
[2018-04-23] MEDS ORDERED: KETOROLAC 30 MG/ML VIAL ONE (09:36)
[2018-04-23] MEDS ORDERED: SEVOFLURANE (ULTANE) 15 ML INHAL SOLN ONE (09:36)
--- NOTE | 2018-04-23 09:39 | Operative Report ---
Operative Report Date of Procedure/Surgery Apr 23, 2018 Surgeon (s) DEON ADKINS DO Harp Maker (s): Paula Ogden, ART TRACER; asst nec to retract important neurovas structures Post-Operative Diagnosis uterine fibroids, endometriosis enteropelvic/bowel adhesions omental adhesions right ovarian cyst FH ovarian cancer Procedure Performed RaTH, BSO, lysis of adhesions Description of Procedure Anesthesia Type: General Estimated blood loss (mL): 50 Specimen(s) collected/removed uterus tubes and ovaries Description of the Procedure After informed consent was obtained, patient was taken into the operating room where general anesthetic was found to be adequate. She was prepped and draped in the usual sterile fashion in the dorsal lithotomy position. A Farfan catheter was placed. A speculum was placed in the vagina. The anterior lip of the cervix was grasped with a sharp toothed tenaculum. The uterus was sounded and depth was approximately 10 cm centimeters. I placed the Yoly device. And then set the Yoly to 12 (I intentionally perforated the uterus for improvement of manipulation) cm and a 3.0 cm collar was advanced over the cervix. I inserted the Yoly without difficulty, inflating the balloon and securing it around the fornix of the cervix. The collar was then secured with sutures at 12 o'clock. Attention was then turned to the patient's abdomen. A supraumbilical incision was made about 8 mm (above her periumbilical tattoo). A Veress needle was inserted and I confirmed intraabdominal placement with a drop in pressure and the saline drop test. I then insufflated the abdomen to a maximum of 15 mmHg with warmed CO2 gas. I then placed an 8 mm trocar and then the Da Sharon camera and intraperitoneal placement was confirmed. I then determined the procedure could be continued robotically. There was an omental adhesion just above the trocar. This was approximately 1 cm at the base and loosely adherent. No additional upper abdominal adhesions were noted. The first robotic port was placed about 15 cm lateral to the right and left of the umbilical placement and slightly inferior. These are both 8 mm trocars. These were placed under direct visualization of the laparoscope. 0.25% Marcaine was injected prior to placement of all trocars. When all placements were confirmed, the patient was placed in steep Trendelenburg allowing adequate visualization and the robot was brought in for docking. The docking was accomplished without difficulty. A survey of the pelvis confirmed the above mentioned findings. There was another adhesion of the omentum tot the anterior abdominal wall just above the uterus. The base was wider, approximately 4 cm in length, but sill loosely adherent. The left tube and ovary were adherent to the bowel in the left pelvis. I elevated this and gently dissected the fatty tissue from the tube and ovary. I was now able to visualize the left infundibulopelvic ligament/ I grasped this with the bipolar cautery, cauterized and then cut with the elder. Next, I was able to visualize the round ligaments bilaterally and grasped them and cauterized with bipolar cautery and then cut with my elder. I now grasped the right infundibulopelvic ligament, sealed the vessel and then cut. I then moved my dissection to the posterior leaves of the broad ligament. I dissected the posterior leaves of the broad ligament off the uterine arteries skeletonizing them bilaterally. I then took a second clamp with the bipolar cautery and with the elder, transected the vessels away from the lateral aspect to the cervical stroma. I dissected the anterior peritoneum off the lower uterine segment. There were some adhesions here as well and these came down easily. I continually pushed the bladder back and I took excessively great care and I was eventually able to dissect the vesicouterine peritoneum off the lower uterine segment. I then dissected in a V fashion towards the midline between the uterosacral ligaments. This allowed me to skeletonize the uterine vessels bilaterally. The balloon on the YOLY was insufflated. This allowed me to see the YOLY circumferentially. I then performed a colpotomy anteriorly and then amputate with cervix away from the vaginal fornix. I then continued the colpotomy circumferentially. Once this was performed, the medication assistant removed the uterus through the vagina. A sponge was left in the vagina to maintain pneumoperitoneum. I then began closure of the vaginal cuff. I closed the apices of the vaginal cuff with 2-0 Vicryl V lock sutures with a colposuspension through the uterosacral ligaments. This suspended the apices of the vaginal cuff. I extended this to the midline from both sides and overlapped the V lock sutures in the midline. Excellent closure is noted and hemostasis is achieved. I was able to now see the ureters bilaterally and these are well away from the area of dissection. All the needles were removed from the patient's abdomen. Patient was awakened and taken to the recovery room in stable condition. Following the case, instrument counts were correct. The patient was repositioned in the supine position and awakened from general anesthesia without difficulty. She was taken to recovery in stable condition. Findings of the Procedure mildly enlarged uterus with fibroid endometriosis on left ovary, enlarged right ovary adhesions of omentum to abdominal wall at uterus and above umbilicus adhesions left ovary and tube to left pelvic side wall and bowel. densely adherent. Allergies and Home Medications Allergies Coded Allergies: No Known Drug Allergies (Unverified , 04/17/18) Home Medications Alprazolam 1 Mg Tablet, 1 MG PO Q6H PRN for ANXIETY, (Reported) Cetirizine HCl 10 Mg Tablet, 10 MG PO DAILY, (Reported) Cholecalciferol (Vitamin D3) 50,000 Unit Capsule, 50,000 UNIT PO WEEK, (Reported ) take on Sunday Chrom Alfa/Brindal Shah 1 Each Tablet, 800 MG PO TID, (Reported) Cyanocobalamin (Vitamin B-12) 2,500 Mcg Tab.subl, 2,500 MCG SL DAILY, (Reported) Diphenhydramine HCl 25 Mg Tablet, 25-50 MG PO HS PRN for SLEEP, (Reported) ALTERNATES BETWEEN BENADRYL AND ZOLPIDEM Pediatric Multivit Comb No.29 1 Each Tab.chew, 2 TAB.CHEW PO DAILY, (Reported) Ranitidine HCl 150 Mg Tablet, 150 MG PO DAILY, (Reported) Thiamine HCl 250 Mg Tablet, 250 MG PO DAILY, (Reported) Zolpidem Tartrate 10 Mg Tablet, 10 MG PO HS PRN for SLEEP, (Reported) ALTERNATES BETWEEN ZOLPIDEM AND BENADRYL Patient Home Medication List Home Medication List Reviewed: Yes DEON ADKINS DO Apr 23, 2018 09:39
[2018-04-23] MEDS ORDERED: HYDROmorphone 2 MG/ML VIAL (DILAUDID) ONE (09:59)
[2018-04-23] MEDS ORDERED: PROMETHAZINE INJ 25 MG/ML (PHENERGAN) AMP IVP ONE (10:00)
[2018-04-23] MEDS ORDERED: ONDANSETRON 4 MG/2 ML (SDV) Z0FRAN IVP PRN (10:00)
[2018-04-23] MEDS ORDERED: HYDROmorphone 2 MG/ML VIAL (DILAUDID) IV ONE (10:00)
[2018-04-23] MEDS ORDERED: THIAMINE 100 MG/ML 2 ML (VITAMIN B-1) VIAL IV ONE (10:15)
--- NOTE | 2018-04-23 10:35 | Anesthesia-General Post-Op ---
General Patient Condition Mental Status/LOC: Same as Preop Cardiovascular: Satisfactory Nausea/Vomiting: Absent Respiratory: Satisfactory Pain: Controlled Complications: Absent Post Op Complications Complications None Follow Up Care/Instructions Patient Instructions None needed. Anesthesia/Patient Condition Patient Condition Patient is doing well, no complaints, stable vital signs, no apparent adverse anesthesia problems. No complications reported per nursing. MAKENNA URBAN CRNA Apr 23, 2018 10:35
[2018-04-23] MEDS ORDERED: THIAMINE IV NR (11:15)
[2018-04-23] MEDS ORDERED: THIAMINE INJECTION 100 MG in NS (IVPB) 50 ML IV ONE (11:15)
[2018-04-23] MEDS ORDERED: NS IV NR (11:15)
[2018-04-23] MEDS ORDERED: SIME80TA16 PO (16:50)
[2018-04-23] MEDS ORDERED: HYDR-34 PO (16:50)
--- NOTE | 2018-04-23 16:53 | Discharge Inst-Women's Service ---
Discharge Inst-Women's Serv Depart Medication/Instructions New, Converted or Re-Newed RX: RX on Chart Instructions No lifting over 25 lbs. walking, recumbent or stationary bike, elliptical ok immediately. no abdominal exercises for at least 6 weeks. No lifting over 10-15 lbs weights for 6 weeks.. no squats or anything that increases abdominal strain for 6 weeks. Final Diagnosis Uterine fibroid menorrhagia (history of anemia) endometriosis enteropelvic adhesions family history of ovarian cancer Consults/Follow Up Additional Follow Up: Yes (1 week with Paula Ogden APRN and 10-12 weeks with Daryl ) Activity Activity: Activity as Tolerated (see above) Driving Instructions: No Driving for 1 Week NO SMOKING: NO SMOKING Nothing Inside Vagina: No Douching, No [place], No Tampons Diet Discharge Diet: No Restrictions Symptoms to Report to : Bleeding Excessive, Pain Increased, Fever Over 101 Degrees F, Vaginal Bleeding Increase, Cramps in Feet or Legs, Vaginal Discharge Foul For Any Problems or Questions: Contact Your Physician Skin/Wound Care Infection Signs and Symptoms: Increased Redness, Foul Odor of Wound, Increased Drainage, Skin Itchy or Has a Rash, Increased Swelling, Temperature Above 101 F Operative Area Clean and Dry: You May Remove Bandage (in three days. If soiled or wet, remove sooner and redress) Stitches/Hayes/Dermabond: Dermabond (vásquez set) Bathing Instructions: DEON Sorensen DO Apr 23, 2018 16:53
[2018-04-24] MEDS ORDERED: IBUPROFEN 600 MG (MOTRIN) TAB PO PRN (00:30)
== END 2018-04-23 17:50 | disposition home or self-care (01) ==
LOC: SDC 06:10 → WS 11:00 → SDC 17:50
PROVIDERS: ATTEND Obstetrics & Gynecology
DX: N80.0 Endometriosis of uterus (principal); N80.1 Endometriosis of ovary; D25.1 Intramural leiomyoma of uterus; N83.201 Unspecified ovarian cyst, right side; N83.202 Unspecified ovarian cyst, left side; N94.89 Other specified conditions associated with female genital organs and menstrual cycle; Z80.41 Family history of malignant neoplasm of ovary; I08.1 Rheumatic disorders of both mitral and tricuspid valves; I42.9 Cardiomyopathy, unspecified; D64.9 Anemia, unspecified; R56.9 Unspecified convulsions; Z98.84 Bariatric surgery status; Z79.899 Other long term (current) drug therapy
CPT/HCPCS: 84703; 86850; 86900; 86901; 88307; 94664

== ENCOUNTER → 2019-04-11 | Outpatient (CLI) | payer OTHER ==
[~2019-04-11] MED LIST changes: +HYDR-34 PO; +SIME80TA16 PO
--- NOTE | 2019-04-14 12:08 | Diagnostic Imaging Report ---
INDICATION: Routine screening. Comparison is made with prior mammogram from 12/13/2011. 2-D and 3-D bilateral screening mammography was performed. The current study was also evaluated with a Computer Aided Detection (CAD) system. 3-D tomosynthesis was also performed and reviewed. FINDINGS: Scattered fibroglandular densities are identified bilaterally. The parenchymal pattern is stable. No mass or malignant-appearing microcalcifications are seen. The axillae are unremarkable. IMPRESSION: No mammographic features suspicious for malignancy are identified. ACR BI-RADS Category 1: Negative. Result letter will be mailed to the patient. Note: At least 10% of breast cancer is not imaged by mammography. Dictated by: Dictated on workstation # [id number]
== END ==
LOC: RAD 13:30
PROVIDERS: ATTEND Obstetrics & Gynecology
DX: Z12.31 Encounter for screening mammogram for malignant neoplasm of breast (principal)
CPT/HCPCS: 77067

== ENCOUNTER → 2020-04-15 | Outpatient (CLI) | payer OTHER ==
[~2020-04-15] MED LIST changes: -METO-387 PO; +MTP25TSR PO; +ONDA-105 PO; -ONDA4TAB10 PO; -PANT40TA3 PO; +PANT40TA52 PO; -RANI-515 PO; +RANI-609 PO
--- NOTE | 2020-04-15 12:55 | Diagnostic Imaging Report ---
INDICATION: Routine screening. Comparison is made with prior mammogram from 04/11/2019. 2-D and 3-D bilateral screening mammography was performed with CAD. Scattered fibroglandular densities are identified bilaterally. The parenchymal pattern is stable. No mass or malignant appearing microcalcifications are seen. Axillae are unremarkable. IMPRESSION: BI-RADS Category 1 No mammographic features suspicious for malignancy are identified. ACR BI-RADS Category 1: Negative. Result letter will be mailed to the patient. Note: At least 10% of breast cancer is not imaged by mammography. Dictated by: Dictated on workstation # [id number]
== END ==
LOC: RAD 10:15
PROVIDERS: ATTEND Obstetrics & Gynecology
DX: Z12.31 Encounter for screening mammogram for malignant neoplasm of breast (principal)
CPT/HCPCS: 77063; 77067

== ENCOUNTER 2020-06-29 15:38 | Emergency (ER) | payer OTHER ==
[~2020-06-29] VITALS: Ht 175 cm; Wt 78.0 kg
--- NOTE | 2020-06-29 16:42 | ED Neurological Problem ---
General Chief Complaint: Neurological Problems Stated Complaint: SEIZURE Nursing Triage Note: Pt reports having witnessed seizure. Pt has no known seizure disorder, has had 1 seizure in the past w/ no known cause. Nursing Sepsis Screen: No Definite Risk Source: patient Exam Limitations: no limitations History of Present Illness Date Seen by Provider: Jun 29, 2020 Time Seen by Provider: 16:30 Initial Comments This is a healthy-appearing 40-year-old female who presents to the ER after experiencing a seizure while shopping at [employer] around 1530 this afternoon. States she was shopping in the aisle and remembers waking up to a worker telling her she had a seizure. EMS was called, she declined EMS transport to the hospital and drove independently. Unknown type/length of seizure activity. Denies loss of bowel or bladder. Notes that she did bite both sides of her tongue. States she does not have a seizure history however does recall having one seizure approximately 3 years ago after her gastric sleeve. States she was followed by neurology and told her seizures were likely related to nutritional deficit. Denies any recent fevers, chills, cough, shortness of breath, nausea/vomiting/diarrhea or abdominal pain. No COVID exposures or recent ill contacts. Allergies and Home Medications Allergies Coded Allergies: No Known Drug Allergies (Unverified , 04/17/18) Home Medications Alprazolam 1 Mg Tablet, 1 MG PO Q6H PRN for ANXIETY, (Reported) Cetirizine HCl 10 Mg Tablet, 10 MG PO DAILY, (Reported) Cholecalciferol (Vitamin D3) 50,000 Unit Capsule, 50,000 UNIT PO WEEK, (Reported) take on Sunday Chrom [place]/Brindal Shah 1 Each Tablet, 800 MG PO TID, (Reported) Cyanocobalamin (Vitamin B-12) 2,500 Mcg Tab.subl, 2,500 MCG SL DAILY, (Reported) Diphenhydramine HCl 25 Mg Tablet, 25-50 MG PO HS PRN for SLEEP, (Reported) ALTERNATES BETWEEN BENADRYL AND ZOLPIDEM Hydrocodone Bit/Acetaminophen 1 Ea Tablet, 1 EA PO Q6H PRN for PAIN-MODERATE TO SEVERE no greater than 3 grams acetominophen in 24 hours Prescribed by: DEON ADKINS on 04/23/18 1650 Pediatric Multivit Comb No.29 1 Each Tab.chew, 2 TAB.CHEW PO DAILY, (Reported) Ranitidine HCl 150 Mg Tablet, 150 MG PO DAILY, (Reported) Simethicone 80 Mg Tab.chew, 80 MG PO TID PRN for INDIGESTION Prescribed by: DEON ADKINS on 04/23/18 1650 Thiamine HCl 250 Mg Tablet, 250 MG PO DAILY, (Reported) Zolpidem Tartrate 10 Mg Tablet, 10 MG PO HS PRN for SLEEP, (Reported) ALTERNATES BETWEEN ZOLPIDEM AND BENADRYL Patient Home Medication List Home Medication List Reviewed: Yes Review of Systems Review of Systems Constitutional: no symptoms reported Eyes: No Symptoms Reported Ears, Nose, Mouth, Throat: no symptoms reported Respiratory: no symptoms reported Cardiovascular: no symptoms reported Gastrointestinal: no symptoms reported Genitourinary: no symptoms reported Musculoskeletal: no symptoms reported Skin: no symptoms reported Psychiatric/Neurological: Other ("Seizure" ) Endocrine: No Symptoms Reported Hematologic/Lymphatic: No Symptoms Reported Past Sylljtl-Ornblc-Xmhtir Hx Patient Social History Alcohol Use: Denies Use Recreational Drug Use: No Smoking Status: Never a Smoker Recent Foreign Travel: No Contact w/Someone Who Travel: No Recent Infectious Disease Expo: No Recent Hopitalizations: No Immunizations Up To Date Tetanus Booster (TDap): Less than 5yrs PED Vaccines UTD: No Date of Influenza Vaccine: Apr 09, 2018 Seasonal Allergies Seasonal Allergies: No Past Medical History Surgeries: Yes (T&A, MYOMECTOMY, WISDOM TEETH, RIGHT KNEE SCOPE, GASTRIC SLEEVE 12/16/15) Tonsillectomy Respiratory: No Currently Using CPAP: No Currently Using BIPAP: No Cardiac: Yes (had some problems after gastric sleeve sx, recent heart cath) Neurological: Yes (HAD ONE SEIZURE IN APR 21) Reproductive Disorders: Yes (FIBROID) Female Reproductive Disorders: Denies Sexually Transmitted Disease: No HIV/AIDS: No Gastrointestinal: No Musculoskeletal: No Chronic Back Pain Endocrine: No Loss of Vision: Denies Hearing Impairment: Denies Cancer: No Psychosocial: No Integumentary: No Blood Disorders: No Adverse Reaction/Blood Tranf: No (N/A) Family Medical History Alcoholism 19 FATHER Diabetes mellitus 19 MOTHER Thyroid disease 19 MOTHER Physical Exam Vital Signs Vital Signs - First Documented 06/29/20 15:57 Temp 35.6 Pulse 73 Resp 18 B/P (MAP) 120/78 (92) Pulse Ox 98 O2 Delivery Room Air Capillary Refill : Less Than 3 Seconds Height, Weight, BMI Height: 5'8.00" Weight: 194lbs. 8.0oz. 88.597543pp; 25.00 BMI Method: General Appearance: WD/WN, no apparent distress HEENT: PERRL/EOMI ( ), normal ENT inspection, TMs normal, pharynx normal, other (bruising/abrasion to bilat. sides of tongue ) Neck: non-tender, full range of motion, supple, normal inspection Respiratory: chest non-tender, lungs clear, normal breath sounds, no respiratory distress Cardiovascular: regular rate, rhythm, no murmur Peripheral Pulses: 2+ Radial Pulses (L) Gastrointestinal: normal bowel sounds, non tender, soft Extremities: normal range of motion, non-tender, normal inspection, normal capillary refill Neurologic/Psychiatric: marketing research coordinator II-XII nml as tested, no motor/sensory deficits, alert, normal mood/affect, oriented x 3; No abnormal cerebellar tests Crainal Nerves: normal hearing, normal speech, PERRL Coordination/Gait: normal gait Motor/Sensory: no motor deficit, no sensory deficit; No weak motor strength RUE, No weak motor strength LUE, No weak motor strength RLE, No weak motor strength LLE Skin: normal color, warm/dry Progress/Results/Core Measures Results/Orders Lab Results Laboratory Tests Test 06/29/20 16:51 06/29/20 16:53 Range/Units White Blood Count 10.9 4.3-11.0 10^3/uL Red Blood Count 4.30 3.80-5.11 10^6/uL Hemoglobin 12.9 11.5-16.0 g/dL Hematocrit 40 35-52 % Mean Corpuscular Volume 93 80-99 fL Mean Corpuscular Hemoglobin 30 25-34 pg Mean Corpuscular Hemoglobin Concent 32 32-36 g/dL Red Cell Distribution Width 12.9 10.0-14.5 % Platelet Count 264 130-400 10^3/uL Mean Platelet Volume 10.9 9.0-12.2 fL Immature Granulocyte % (Auto) 0 % Neutrophils (%) (Auto) 88 H 42-75 % Lymphocytes (%) (Auto) 8 L 12-44 % Monocytes (%) (Auto) 3 0-12 % Eosinophils (%) (Auto) 1 0-10 % Basophils (%) (Auto) 0 0-10 % Neutrophils # (Auto) 9.6 H 1.8-7.8 10^3/uL Lymphocytes # (Auto) 0.9 L 1.0-4.0 10^3/uL Monocytes # (Auto) 0.4 0.0-1.0 10^3/uL Eosinophils # (Auto) 0.1 0.0-0.3 10^3/uL Basophils # (Auto) 0.0 0.0-0.1 10^3/uL Immature Granulocyte # (Auto) 0.0 0.0-0.1 10^3/uL Neutrophils % (Manual) 89 % Lymphocytes % (Manual) 6 % Monocytes % (Manual) 5 % Blood Morphology Comment NORMAL Sodium Level 138 135-145 MMOL/L Potassium Level 4.0 3.6-5.0 MMOL/L Chloride Level 104 98-107 MMOL/L Carbon Dioxide Level 25 21-32 MMOL/L Anion Gap 9 5-14 MMOL/L Blood Urea Nitrogen 12 7-18 MG/DL Creatinine 0.75 0.60-1.30 MG/DL Estimat Glomerular Filtration Rate > 60 BUN/Creatinine Ratio 16 Glucose Level 98 70-105 MG/DL Calcium Level 8.7 8.5-10.1 MG/DL Corrected Calcium 8.5 8.5-10.1 MG/DL Magnesium Level 2.3 1.6-2.4 MG/DL Total Bilirubin 0.6 0.1-1.0 MG/DL Aspartate Amino Transf (AST/SGOT) 27 5-34 U/L Alanine Aminotransferase (ALT/SGPT) 28 0-55 U/L Alkaline Phosphatase 52 40-136 U/L Total Creatine Kinase 97 29-168 U/L Troponin I < 0.028 <0.028 NG/ML Total Protein 6.9 6.4-8.2 GM/DL Albumin 4.3 3.2-4.5 GM/DL Thyroid Stimulating Hormone (TSH) 0.65 0.35-4.94 UIU/ML Salicylates Level < 5.0 L 5.0-20.0 MG/DL Acetaminophen Level < 10 L 10-30 UG/ML Serum Alcohol < 10 <10 MG/DL Urine Color YELLOW Urine Clarity SL CLOUDY Urine pH 7.5 5-9 Urine Specific [place] 1.020 1.016-1.022 Urine Protein NEGATIVE NEGATIVE Urine Glucose (UA) NEGATIVE NEGATIVE Urine Ketones NEGATIVE NEGATIVE Urine Nitrite NEGATIVE NEGATIVE Urine Bilirubin NEGATIVE NEGATIVE Urine Urobilinogen 1.0 < = 1.0 MG/DL Urine Leukocyte Esterase NEGATIVE NEGATIVE Urine RBC (Auto) NEGATIVE NEGATIVE Urine RBC 0-2 /HPF Urine WBC 0-2 /HPF Urine Crystals PRESENT H /LPF Urine Amorphous Sediment LARGE MELVIN PHOSPHATE H /LPF Urine Bacteria TRACE /HPF Urine Casts NONE /LPF Urine Mucus LARGE H /LPF Urine Culture Indicated NO Urine Test NEGATIVE NEGATIVE Urine Opiates Screen NEGATIVE NEGATIVE Urine Oxycodone Screen NEGATIVE NEGATIVE Urine Methadone Screen NEGATIVE NEGATIVE Urine Propoxyphene Screen NEGATIVE NEGATIVE Urine Barbiturates Screen NEGATIVE NEGATIVE Ur Tricyclic Antidepressants Screen NEGATIVE NEGATIVE Urine Phencyclidine Screen NEGATIVE NEGATIVE Urine Amphetamines Screen NEGATIVE NEGATIVE Urine Methamphetamines Screen NEGATIVE NEGATIVE Urine Benzodiazepines Screen NEGATIVE NEGATIVE Urine Cocaine Screen NEGATIVE NEGATIVE Urine Cannabinoids Screen NEGATIVE NEGATIVE My Orders Orders - [employer] COUNSELOR Ct Head Wo (06/29/20 16:15) Cbc With Automated Diff (06/29/20 16:16) Comprehensive Metabolic Panel (06/29/20 16:16) Ua Culture If Indicated (06/29/20 16:16) Magnesium (06/29/20 16:16) Ekg Tracing (06/29/20 16:16) Creatine Kinase (06/29/20 16:16) Thyroid Stimulating Hormone (06/29/20 16:16) Troponin I (06/29/20 16:16) Monitor-Rhythm Ecg Trace Only (06/29/20 16:36) Alcohol (06/29/20 16:42) Drug Screen Stat (Urine) (06/29/20 16:42) Acetaminophen (06/29/20 16:42) Salicylate (06/29/20 16:42) Hcg,Qualitative Urine (06/29/20 16:42) Manual Differential (06/29/20 16:51) Vital Signs/I&O 06/29/20 06/29/20 15:57 17:58 Temp 35.6 35.6 Pulse 73 73 Resp 18 18 B/P (MAP) 120/78 (92) 120/78 (92) Pulse Ox 98 98 O2 Delivery Room Air Room Air Blood Pressure Mean: 92 Progress Progress Note : Progress Note On arrival she is awake alert and has no complaints other than a frontal headache, which she states she had prior to having a seizure. Initiated basic labs, drug/tox screen, TSH, Mg, EKS, non-contrast head CT. Called neurology office twice and left voicemail to schedule appointment. However, no return call received. Provided patient with telephone number to schedule appointment at earliest convenience. Labs and EKG reviewed and are unremarkable. Head CT shows no acute diagnosis. Reviewed findings with the patient and discussed following up with her neuro logist at , she is agreeable with this plan. Reinforced no driving until she has follow-up and clearance with neurology. States that she does have a family member to be with her with at home. Initial ECG Impression Date: Jun 29, 2020 Initial ECG Impression Time: 16:43 Initial ECG Rate: 63 Initial ECG Rhythm: Normal Sinus Initial ECG Intervals: Normal Diagnostic Imaging Diagonstic Imaging: CT Plain Films/CT/US/NM/MRI: head Comments NAME: ELSI GODOY MED REC#: [id number] PT STATUS: REG ER : 1980 PHYSICIAN: [employer] COUNSELOR ADMIT DATE: 06/29/20/ER Signed Date of Exam:06/29/20 CT HEAD WO PROCEDURE: CT head without contrast. TECHNIQUE: Multiple contiguous axial images were obtained through the brain without the use of intravenous contrast. Auto Exposure Controls were utilized during the CT exam to meet ALARA standards for radiation dose reduction. INDICATION: Seizure. COMPARISON: No prior examinations are available for comparison. FINDINGS: The ventricles and sulci are within normal limits. There is no hydrocephalus or cerebral edema. There is no midline shift or mass effect. There is no intracranial mass, hemorrhage, or extra-axial fluid collection. The visualized paranasal sinuses and mastoid air cells are clear. There are no regional areas of decreased attenuation appreciated to suggest an acute CVA. IMPRESSION: No acute intracranial abnormality. Dictated by: Dictated on workstation # [id number] Dict: 06/29/201732 Trans: 06/29/201810 [id number] [id number] Interpreted by: DEBORAH LOZANO MD Electronically signed by: DEBORAH LOZANO MD 06/29/201810 Departure Impression Primary Impression: Seizure Disposition: HOME, SELF-CARE Condition: Stable/Unchanged Departure-Patient Inst. Decision time for Depature: 17:29 Referrals: [facility] (PCP/Family) Primary Care Physician Patient Instructions: Seizures, Adult (DC) Add. Discharge Instructions: Plan: 1. Discharge home. Do not drive. Have someone with you at all times. 2. May take Tylenol or Ibuprofen as needed for pain per package instructions for headache. 3. Follow up with neurology tomorrow, call [phone] to schedule appointment. 4. Return for any new or concerning symptoms. All discharge instructions reviewed with patient and/or family. Voiced understanding. HERMELINDO [employer] COUNSELOR Jun 29, 2020 16:42
[2020-06-29 17:01] LABS: BASOPHILS % (AUTO) 0 % (0-10); EOSINOPHILS # (AUTO) 0.1 10^3/uL (0.0-0.3); EOSINOPHILS % (AUTO) 1 % (0-10); HEMATOCRIT 40 % (35-52); HEMOGLOBIN 12.9 g/dL (11.5-16.0); LYMPHOCYTES # (AUTO) 0.9 10^3/uL (1.0-4.0); LYMPHOCYTES % (AUTO) 8 % (12-44); MEAN CORPUSCULAR HEMOGLOBIN 30 pg (25-34); MEAN CORPUSCULAR HGB CONC 32 g/dL (32-36); MEAN CORPUSCULAR VOLUME 93 fL (80-99); MEAN PLATELET VOLUME 10.9 fL (9.0-12.2); MONOCYTES # (AUTO) 0.4 10^3/uL (0.0-1.0); MONOCYTES % (AUTO) 3 % (0-12); NEUTROPHILS # (AUTO) 9.6 10^3/uL (1.8-7.8); NEUTROPHILS % (AUTO) 88 % (42-75); PLATELET COUNT 264 10^3/uL (130-400); WHITE BLOOD COUNT 10.9 10^3/uL (4.3-11.0)
[2020-06-29 17:09] LABS: ALBUMIN 4.3 GM/DL (3.2-4.5); CHLORIDE 104 MMOL/L (98-107); SODIUM 138 MMOL/L (135-145)
[2020-06-29 17:11] LABS: CALCIUM 8.7 MG/DL (8.5-10.1)
[2020-06-29 17:12] LABS: GLUCOSE 98 MG/DL (70-105); TOTAL PROTEIN 6.9 GM/DL (6.4-8.2)
[2020-06-29 17:13] LABS: BILIRUBIN,URINE NEGATIVE (NEGATIVE); CLARITY,URINE SL CLOUDY; COLOR,URINE YELLOW; GLUCOSE, URINE (UA) NEGATIVE (NEGATIVE); KETONES,URINE NEGATIVE (NEGATIVE); LEUKOCYTE ESTERASE ,URINE NEGATIVE (NEGATIVE); NITRITE,URINE NEGATIVE (NEGATIVE); PH,URINE 7.5 (5-9); PROTEIN,URINE NEGATIVE (NEGATIVE)
[2020-06-29 17:13] LABS: CARBON DIOXIDE 25 MMOL/L (21-32)
[2020-06-29 17:14] LABS: BILIRUBIN,TOTAL 0.6 MG/DL (0.1-1.0)
[2020-06-29 17:16] LABS: ALKALINE PHOSPHATASE 52 U/L (40-136); CREATININE SERUM 0.75 MG/DL (0.60-1.30); GFR ESTIMATED > 60
[2020-06-29 17:17] LABS: BUN/CREATININE RATIO 16
[2020-06-29 17:18] LABS: MAGNESIUM 2.3 MG/DL (1.6-2.4); SALICYLATE < 5.0 MG/DL (5.0-20.0)
[2020-06-29 17:19] LABS: HCG,QUALITATIVE URINE NEGATIVE (NEGATIVE)
[2020-06-29 17:19] LABS: ALANINE AMINOTRANSFERASE 28 U/L (0-55); CREATINE KINASE 97 U/L (29-168)
[2020-06-29 17:20] LABS: ACETAMINOPHEN < 10 UG/ML (10-30)
[2020-06-29 17:25] LABS: AMPHETAMINE SCREEN, URINE NEGATIVE (NEGATIVE); BARBITURATE SCREEN URINE NEGATIVE (NEGATIVE); BENZODIAZEPINES SCREEN URINE NEGATIVE (NEGATIVE); CANNABINOID SCREEN, URINE NEGATIVE (NEGATIVE); COCAINE SCREEN URINE NEGATIVE (NEGATIVE); METHADONE STAT NEGATIVE (NEGATIVE); METHAMPHETAMINE SCREEN URINE S NEGATIVE (NEGATIVE); OPIATE SCREEN URINE NEGATIVE (NEGATIVE); OXYCODONE STAT NEGATIVE (NEGATIVE); PROPOXYPHENE STAT NEGATIVE (NEGATIVE); TRICYCLIC ANTIDEPRESSANTS SCRE NEGATIVE (NEGATIVE)
[2020-06-29 17:33] LABS: BACTERIA,URINE TRACE /HPF; RBC,URINE 0-2 /HPF; WBC,URINE 0-2 /HPF
[2020-06-29 17:34] LABS: AMORPHOUS SEDIMENT,UR LARGE AMOR PHOSPHATE /LPF
--- NOTE | 2020-06-29 17:35 | Diagnostic Imaging Report ---
PROCEDURE: CT head without contrast. TECHNIQUE: Multiple contiguous axial images were obtained through the brain without the use of intravenous contrast. Auto Exposure Controls were utilized during the CT exam to meet ALARA standards for radiation dose reduction. INDICATION: Seizure. COMPARISON: No prior examinations are available for comparison. FINDINGS: The ventricles and sulci are within normal limits. There is no hydrocephalus or cerebral edema. There is no midline shift or mass effect. There is no intracranial mass, hemorrhage, or extra-axial fluid collection. The visualized paranasal sinuses and mastoid air cells are clear. There are no regional areas of decreased attenuation appreciated to suggest an acute CVA. IMPRESSION: No acute intracranial abnormality. Dictated by: Dictated on workstation # [id number]
[2020-06-29 17:45] LABS: LYMPHOCYTES % (MANUAL) 6 %; MONOCYTES % (MANUAL) 5 %; NEUTROPHILS % (MANUAL) 89 %; RBC MORPH NORMAL
[2020-06-29 17:58] VITALS: BP 120/78
== END 2020-06-29 17:58 | disposition home or self-care (01) ==
LOC: EDUNIT# 15:38 → ER 15:41
DX: R56.9 Unspecified convulsions (principal); G89.29 Other chronic pain; M54.9 Dorsalgia, unspecified; Z83.3 Family history of diabetes mellitus; Z79.891 Long term (current) use of opiate analgesic
CPT/HCPCS: 70450; 80053; 80306; 81000; 82550; 83735; 84443; 84484; 84703; 85007; 85027; 93041; G0480 ×3; 36415; 80320; 80329

== ENCOUNTER → 2021-04-20 | Outpatient (CLI) | payer OTHER ==
[~2021-04-20] MED LIST changes: -FOLI1TAB24 PO; +FOLI1TAB33 PO; -OXYC-471 PO; +OXYC1TAB11 PO; +SCOP1PAT10 TD; -SCOP1PAT11 TD
--- NOTE | 2021-04-20 13:40 | Diagnostic Imaging Report ---
INDICATION: Routine screening. COMPARISON is made with prior mammograms 04/15/2020 and 04/11/2019. 2-D and 3-D bilateral screening mammography was performed with CAD. Scattered fibroglandular densities are identified bilaterally. The parenchymal pattern is stable. No mass or malignant-appearing microcalcifications are seen. Axillae are unremarkable. IMPRESSION: BI-RADS Category 1 No mammographic features suspicious for malignancy are identified. ACR BI-RADS Category 1: Negative. Result letter will be mailed to the patient. Note: At least 10% of breast cancer is not imaged by mammography. Dictated by: Dictated on workstation # [id number]
== END ==
LOC: RAD 10:30
PROVIDERS: ATTEND Obstetrics & Gynecology
DX: Z12.31 Encounter for screening mammogram for malignant neoplasm of breast (principal)
CPT/HCPCS: 77063; 77067

== ENCOUNTER → 2021-07-28 | Outpatient (CLI) | payer OTHER ==
[2021-07-28 09:17] LABS: BASOPHILS % (AUTO) 0 % (0-10); EOSINOPHILS # (AUTO) 0.2 10^3/uL (0.0-0.3); EOSINOPHILS % (AUTO) 4 % (0-10); HEMATOCRIT 43 % (35-52); HEMOGLOBIN 13.5 g/dL (11.5-16.0); LYMPHOCYTES # (AUTO) 1.6 10^3/uL (1.0-4.0); LYMPHOCYTES % (AUTO) 37 % (12-44); MEAN CORPUSCULAR HEMOGLOBIN 29 pg (25-34); MEAN CORPUSCULAR HGB CONC 32 g/dL (32-36); MEAN CORPUSCULAR VOLUME 91 fL (80-99); MEAN PLATELET VOLUME 10.6 fL (9.0-12.2); MONOCYTES # (AUTO) 0.2 10^3/uL (0.0-1.0); MONOCYTES % (AUTO) 5 % (0-12); NEUTROPHILS # (AUTO) 2.3 10^3/uL (1.8-7.8); NEUTROPHILS % (AUTO) 54 % (42-75); PLATELET COUNT 239 10^3/uL (130-400); WHITE BLOOD COUNT 4.3 10^3/uL (4.3-11.0)
[2021-07-28 09:28] LABS: ALBUMIN 4.4 GM/DL (3.2-4.5); POTASSIUM 4.1 MMOL/L (3.6-5.0)
[2021-07-28 09:29] LABS: CALCIUM 9.2 MG/DL (8.5-10.1)
[2021-07-28 09:31] LABS: TOTAL PROTEIN 7.2 GM/DL (6.4-8.2)
[2021-07-28 09:32] LABS: BILIRUBIN,TOTAL 0.7 MG/DL (0.1-1.0)
[2021-07-28 09:34] LABS: CREATININE SERUM 0.84 MG/DL (0.60-1.30)
[2021-07-28 10:00] LABS: FREE T4 (FREE THYROXINE) 0.91 NG/DL (0.70-1.48)
== END ==
LOC: LAB 08:39
PROVIDERS: ATTEND Family Medicine
DX: E34.9 Endocrine disorder, unspecified (principal); Z98.84 Bariatric surgery status
CPT/HCPCS: 36415; 80053; 80061; 82306; 82627; 82670; 84270; 84403; 84439; 84443; 84481; 84482; 85025

== ENCOUNTER → 2022-06-30 | Outpatient (CLI) | payer BC ==
--- NOTE | 2022-06-30 13:36 | Diagnostic Imaging Report ---
INDICATION: Routine screening. Comparison is made with prior mammogram of 04/20/2021 and 04/15/2020. 2-D and 3-D bilateral screening mammography was performed with CAD. Scattered fibroglandular densities are identified bilaterally. The parenchymal pattern is stable. No mass or malignant-appearing microcalcifications are seen. Axillae are unremarkable. IMPRESSION: No mammographic features suspicious for malignancy are identified. ACR BI-RADS Category 1: Negative. Result letter will be mailed to the patient. Note: At least 10% of breast cancer is not imaged by mammography. BI-RADS Category 1 Dictated by: Dictated on workstation # [id number]
== END ==
LOC: RAD 10:41
PROVIDERS: ATTEND Obstetrics & Gynecology
DX: Z12.31 Encounter for screening mammogram for malignant neoplasm of breast (principal)
CPT/HCPCS: 77063; 77067

== ENCOUNTER 2023-02-01 20:18 | Emergency (ER) | payer BC ==
[~2023-02-01] VITALS: Ht 177.8 cm; Wt 83.0 kg
[2023-02-01 21:01] LABS: HEMATOCRIT 37 % (35-52); HEMOGLOBIN 12.5 g/dL (11.5-16.0); MEAN CORPUSCULAR HEMOGLOBIN 30 pg (25-34); MEAN CORPUSCULAR HGB CONC 34 g/dL (32-36); MEAN CORPUSCULAR VOLUME 89 fL (80-99); MEAN PLATELET VOLUME 10.4 fL (9.0-12.2); PLATELET COUNT 241 10^3/uL (130-400)
--- NOTE | 2023-02-01 21:13 | ED Lower Extremity ---
General Chief Complaint: Lower Extremity Stated Complaint: LEFT LEG PAIN Nursing Triage Note: PT AMB TO ED BY POV WTIH C/O L LEG PAIN. PT IS CONCERNED SHE HAS A BLOOD CLOT. PT REPORTS INTERMITTENT L LEG PAIN OVER THE LAST TWO WEEKS. REPORTS PAIN BEGAN IN THE BACK OF HER THIGH, BEGAN RADIATING INTO HER CALF TODAY. PT COMMUTES AN HOUR AND A HALF FOR WORK, BUT DENIES ANY OTHER RECENT TRAVEL. DENIES INJURY. Source: patient History of Present Illness Date Seen by Provider: Feb 01, 2023 Time Seen by Provider: 20:30 Initial Comments PT ARRIVES VIA POV FROM HOME PT STATES FOR THE LAST 2 WEEKS SHE HAS HAD INTERMITTENT PAIN IN LEFT POSTERIOR CALF PAIN IS SHARP STABBING PAIN AND IS NOT PRESENT NOW TODAY SHE HAD PAIN IN HER LEFT CALF WHEN SHE GOT HOME FROM WORK AND WAS GETTING OUT OF THE CAR, AND NOTICED THAT IT WAS TENDER AND SORE TO TOUCH AND IS WORSE WITH DORSIFLEXION OF HER FOOT NO SWELLING TO LEG OCCASIONALLY HAS A LITTLE NUMBNESS TO A SPOT IN HER POSTERIOR LEFT THIGH, BUT NOT NOW NO BACK PAIN NO CHEST PAIN OR SHORTNESS OF BREATH NO PALPITATIONS NO DIZZINESS OR SYNCOPE NO FEVER/SWEATS/CHILLS NO REDNESS OR DISCOLORATION TO THE LEG PT STATES SHE GETS LEG CRAMPS AT NIGHT ALL THE TIME AND SOMETIMES HER MUSCLES ARE SORE BECAUSE OF IT. SHE HAS TAKEN TYLENOL A COUPLE OF TIMES OVER THE LAST 2 WEEKS AND IT HAS HELPED SHE TOOK SOME TONIGHT AND IT HELPED NO UNUSUAL ACTIVITY SHE DRIVES 3 HOURS TOTAL EVERY DAY TO AND FROM WORK, AND STANDS FOR 8 HOURS AT WORK. SHE HAS NOT SOUGHT CARE AT ANY TIME UNTIL TONIGHT SHE IS LEAVING FOR [place] ON SUNDAY MORNING 02/03/23 AND WANTS CHECKED FOR A BLOOD CLOT TONIGHT. SHE IS ON ESTROGEN AND PROGESTERONE DAILY SHE IS CURRENTLY ON DOXYCYCLINE FOR AN ABSCESS IN HER RIGHT GROIN AREA. PCP: DR. FREEMAN AT [facility] Allergies and Home Medications Allergies Coded Allergies: No Known Drug Allergies (Unverified , 04/17/18) Patient Home Medication List Home Medication List Reviewed: Yes Alprazolam (Alprazolam) 1 Mg Tablet, 1 MG PO Q6H PRN for ANXIETY, (Reported) Entered as Reported by: GILDARDO CHANG on 01/26/16 1004 Cetirizine HCl (Cetirizine HCl) 10 Mg Tablet, 10 MG PO DAILY, (Reported) Entered as Reported by: MONTY ZELAYA on 04/17/18 0832 Cholecalciferol (Vitamin D3) (Vitamin D3) 50,000 Unit Capsule, 50,000 UNIT PO WEEK, (Reported) Entered as Reported by: SHASHANK TAPIA on 06/15/16 1212 Chrom Alfa/Brindal Shah (Garcinia Cambogia Tablet) 1 Each Tablet, 800 MG PO TID, (Reported) Entered as Reported by: MONTY ZELAYA on 04/17/18 0832 Cyanocobalamin (Vitamin B-12) (Vitamin B-12) 2,500 Mcg Tab.subl, 2,500 MCG SL DAILY, (Reported) Entered as Reported by: KYRA SPIVEY on 03/07/16 1338 Diphenhydramine HCl (Diphenhydramine HCl) 25 Mg Tablet, 25-50 MG PO HS PRN for SLEEP, (Reported) Entered as Reported by: GILDARDO CHANG on 01/26/16 1004 Hydrocodone Bit/Acetaminophen (Lortab 7.5 Mg Tablet) 1 Ea Tablet, 1 EA PO Q6H PRN for PAIN-MODERATE TO SEVERE Prescribed by: DEON ADKINS on 04/23/18 1650 Pediatric Multivit Comb No.29 (Gummies Girls' Multivitamins) 1 Each Tab.chew, 2 TAB.CHEW PO DAILY, (Reported) Entered as Reported by: KYRA SPIVEY on 03/07/16 1338 Ranitidine HCl (Acid Legal Intern (RANITIDINE)) 150 Mg Tablet, 150 MG PO DAILY, (Reported) Entered as Reported by: MONTY ZELAYA on 04/17/18 0832 Simethicone (Simethicone) 80 Mg Tab.chew, 80 MG PO TID PRN for INDIGESTION Prescribed by: DEON ADKINS on 04/23/18 1650 Thiamine HCl (Vitamin B-1) 250 Mg Tablet, 250 MG PO DAILY, (Reported) Entered as Reported by: MONTY ZELAYA on 04/17/18 0832 Zolpidem Tartrate (Zolpidem Tartrate) 10 Mg Tablet, 10 MG PO HS PRN for SLEEP, (Reported) Entered as Reported by: KYRA SPIVEY on 01/11/16 1359 Review of Systems Constitutional: no symptoms reported Respiratory: no symptoms reported Cardiovascular: no symptoms reported Gastrointestinal: no symptoms reported Genitourinary: no symptoms reported Musculoskeletal: see HPI Skin: no symptoms reported Psychiatric/Neurological: See HPI Past Qzoomcd-Asyhtk-Sobkiq Hx Patient Social History Tobacco Use?: No Use of E-Cig and/or Vaping dev: No Substance use?: No Alcohol Use?: No Pt feels they are or have been: No Immunizations Up To Date Tetanus Booster (TDap): Less than 5yrs PED Vaccines UTD: No Seasonal Allergies Seasonal Allergies: Yes Past Medical History Surgeries: Yes (T&A, MYOMECTOMY, WISDOM TEETH, RIGHT KNEE SCOPE, GASTRIC SLEEVE 12/16/15;CATH) Abdominal, Adenoidectomy, Cardiac, Orthopedic, Tonsillectomy Respiratory: No Currently Using CPAP: No Currently Using BIPAP: No Cardiac: Yes (had some problems after gastric sleeve sx, recent heart cath) Neurological: Yes (HAD ONE SEIZURE IN APR 22) Seizure Disorder Reproductive Disorders: Yes (FIBROID) Sexually Transmitted Disease: No HIV/AIDS: No Genitourinary: No Gastrointestinal: Yes (GASTRIC SLEEVE) Musculoskeletal: Yes (RIGHT KNEE SCOPE) Chronic Back Pain Endocrine: Yes Hypothyroidsim HEENT: No Loss of Vision: Denies Hearing Impairment: Denies Cancer: No Psychosocial: Yes Anxiety Integumentary: No Blood Disorders: No Adverse Reaction/Blood Tranf: No (N/A) Family Medical History Alcoholism 19 FATHER Diabetes mellitus 19 MOTHER Thyroid disease 19 MOTHER Physical Exam Vital Signs Vital Signs - First Documented 02/01/23 20:25 Temp 36.8 Pulse 73 Resp 14 B/P (MAP) 146/92 (110) Pulse Ox 97 O2 Delivery Room Air Capillary Refill : Less Than 3 Seconds Height, Weight, BMI Height: 5'8.00" Weight: 194lbs. 8.0oz. 88.616526ge; 26.00 BMI Method: General Appearance: WD/WN, no apparent distress Cardiovascular: normal peripheral pulses, regular rate, rhythm, no edema, no JVD, no murmur Respiratory: normal breath sounds, no respiratory distress, no accessory muscle use Gastrointestinal: normal bowel sounds, non tender, soft Hips: bilateral hip normal inspection Legs: right leg normal inspection; left leg other (VERY MILD LEFT CALF TENDERNESS. NO CORDING. NO DISCOLORATION. 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, no motor/sensory deficits, alert, normal mood/affect, oriented x 3 Skin: normal color, warm/dry Progress/Results/Core Measures Results/Orders Lab Results Laboratory Tests Test 02/01/23 20:52 02/01/23 21:24 Range/Units White Blood Count 8.0 4.3-11.0 10^3/uL Red Blood Count 4.11 3.80-5.11 10^6/uL Hemoglobin 12.5 11.5-16.0 g/dL Hematocrit 37 35-52 % Mean Corpuscular Volume 89 80-99 fL Mean Corpuscular Hemoglobin 30 25-34 pg Mean Corpuscular Hemoglobin Concent 34 32-36 g/dL Red Cell Distribution Width 11.9 10.0-14.5 % Platelet Count 241 130-400 10^3/uL Mean Platelet Volume 10.4 9.0-12.2 fL D-Dimer < 0.27 0.00-0.49 UG/ML Sodium Level 139 135-145 MMOL/L Potassium Level 3.2 L 3.6-5.0 MMOL/L Chloride Level 108 H 98-107 MMOL/L Carbon Dioxide Level 21 21-32 MMOL/L Anion Gap 10 5-14 MMOL/L Blood Urea Nitrogen 12 7-18 MG/DL Creatinine 0.88 0.60-1.30 MG/DL Estimat Glomerular Filtration Rate 84 BUN/Creatinine Ratio 14 Glucose Level 124 H 70-105 MG/DL Calcium Level 8.7 8.5-10.1 MG/DL Magnesium Level 2.1 1.6-2.4 MG/DL My Orders Orders - ARIS GALVEZ DO Basic Metabolic Panel (02/01/23 20:39) Cbc No Diff (02/01/23 20:39) Fibrin Degradation Products (02/01/23 20:39) Magnesium (02/01/23 21:21) Potassium Chloride (Tablet) (Klor Con Ta (02/01/23 21:45) Vital Signs/I&O 02/01/23 20:25 Temp 36.8 Pulse 73 Resp 14 B/P (MAP) 146/92 (110) Pulse Ox 97 O2 Delivery Room Air Blood Pressure Mean: 110 Progress Progress Note : Progress Note LABS ORDERED POTASSIUM IS 3.4, OTHER LABS ARE UNREMARKABLE D-DIMER IS NEGATIVE NO ULTRASOUND AVAILABILITY AT THIS HOUR. OFFERED TO ORDER OUTPATIENT ULTRASOUND, BUT PT DECLINES AT THIS TIME, D-DIMER IS NEGATIVE. GIVEN ORAL POTASSIUM HERE UNEVENTFUL ER STAY NO DYSPNEA NO HYPOXIA NO TACHYCARDIA VITALS ARE STABLE. DISCUSSED ANTICIPATED COURSE, SYMPTOMATIC TREATMENT, NEED FOR FOLLOW UP AND RETURN PRECAUTIONS. Departure Impression Primary Impression: Left leg pain Additional Impression: Hypokalemia Disposition: HOME, SELF-CARE Condition: Stable Departure-Patient Inst. Decision time for Depature: 21:46 Referrals: AISLINN FREEMAN MD (PCP/Family) Primary Care Physician Patient Instructions: High Potassium Diet, Muscle and Bone Pain (DC), Nocturnal (Nighttime) Leg Cramps (DC) Add. Discharge Instructions: INCREASE YOUR FLUID INTAKE--ESPECIALLY WATER AND GATORADE CONTINUE YOUR REGULAR MEDICATIONS PRESCRIBED FOLLOW UP WITH YOUR DR IF SYMPTOMS PERSIST RETURN TO ER IF YOUR SYMPTOMS WORSEN OR IF YOU ARE HAVING SHORTNESS OF BREATH OR CHEST PAIN All discharge instructions reviewed with patient and/or family. Voiced understanding. ARIS GALVEZ DO Feb 01, 2023 21:13
[2023-02-01 21:19] LABS: POTASSIUM 3.2 MMOL/L (3.6-5.0)
[2023-02-01 21:20] LABS: CALCIUM 8.7 MG/DL (8.5-10.1)
[2023-02-01 21:24] LABS: CREATININE SERUM 0.88 MG/DL (0.60-1.30)
[2023-02-01] MEDS ORDERED: KCL 10 MEQ TAB (MICRO K) PO ONE (21:45)
[2023-02-01 21:59] VITALS: BP 109/75
== END 2023-02-01 21:59 | disposition home or self-care (01) ==
LOC: EDUNIT# 20:18 → ER 20:21
DX: M79.605 Pain in left leg (principal); E87.6 Hypokalemia; L02.214 Cutaneous abscess of groin; Z79.2 Long term (current) use of antibiotics; Z79.3 Long term (current) use of hormonal contraceptives
CPT/HCPCS: 36415; 80048; 83735; 85027; 85379

== ENCOUNTER → 2023-05-09 | Outpatient (CLI) | payer BC ==
[2023-05-09] MEDS: GADOTERATE 0.5 MMOL/ML (CLARISCAN) 20 ML VIAL IV ONE (15:19)
--- NOTE | 2023-05-09 15:35 | Diagnostic Imaging Report ---
PROCEDURE: MRI lumbar spine with and without contrast. TECHNIQUE: Multiplanar, multisequence MRI of the lumbar spine was performed with and without contrast. INDICATION: Low back pain with radiculopathy. COMPARISON: None available. FINDINGS: Alignment of the lumbar spine is normal. No fracture or concerning marrow-replacing process. There are no Modic endplate changes. There is a benign hemangioma within the right paul-aspect of the T11 vertebral body. Distal thoracic cord is normal in appearance. No abnormal clumping or enlargement of the intrathecal nerve roots. No extradural fluid collection. L1-L2: No spinal canal or neuroforaminal narrowing. L2-L3: No spinal canal or neuroforaminal narrowing. L3-L4: Disc bulge with coexistent central disc protrusion causes minimal effacement of ventral thecal sac but no spinal canal stenosis or impingement of the intrathecal nerve roots. There is mild bilateral neuroforaminal narrowing without mass effect on the exiting nerve roots. L4-L5: Minimal disc bulge with posterior annular tear. No spinal canal or neuroforaminal stenosis. L5-S1: There is a large left paracentral disc extrusion which severely narrows the left lateral recess and compresses the left S1 nerve root. It also abuts the left S2 nerve root. IMPRESSION: 1. A large left-sided disc extrusion at L5-S1 compresses the left S1 nerve root. It additionally potentially contacts the left S2 nerve root. 2. No pathologic enhancement or fracture. Dictated by: Dictated on workstation # [id number]
== END ==
LOC: RAD 13:58
PROVIDERS: ATTEND Chiropractor
DX: M51.17 Intervertebral disc disorders with radiculopathy, lumbosacral region (principal)
CPT/HCPCS: 72158